=== PATIENT | female | born 1970 | race Caucasian/White ===

== ENCOUNTER 2016-12-17 13:40 | Emergency (ER) | payer BC ==
[~2016-12-17] VITALS: Ht 172.7 cm; Wt 67.0 kg
[~2016-12-17 13:40] MED LIST: ALBUAER19 INH; CRFL PO; CTP1CL PO; CYM/30 PO; DULO60CA44 PO; GABA-113 PO; HYDR50CA2 PO; OXYC-57 PO; POTA-335 PO; PRAZ2CAP3 PO; QUET-205 PO; QUET1TAB30 PO; ROPI0.5T15 PO; TOPI50TA16 PO; TRAZ50TA35 PO
[2016-12-17 13:45] VITALS: TEMP 37.2; Ht 172.7 cm; Wt 67.0 kg
[2016-12-17] MEDS ORDERED: LORAZEPAM 1 MG TAB SL STA (14:35)
--- NOTE | 2016-12-17 14:48 | EMERGENCY ROOM VISIT NOTE ---
History Report prepared by Silvia: Latrice Chahal Under the Supervision of: Dr. Dileep Whitlock M.D. First contact with patient: 14:14 Chief Complaint: MENTAL HEALTH EVALUATION Stated Complaint: VOICES IN HER HEAD TELLING HER NOT TO DO THINGS History of Present Illness The patient is a 46 year old female who presents to the Emergency Room with complaints of persistent auditory hallucinations that began in July. The patient states that she just got out of retirement today after being there since July 28. She states that when she went to retirement is when her hallucinations began. The patient states that she was always locked in a room while in retirement and was only let out to go see her psych doctors. The patient states that the voices are not telling her to do anything, and she denies any suicidal or homicidal ideation. She states that she has been sleeping okay. The patient notes a decrease in appetite. She states that she is on Klonopin. The patient notes back pain today that is chronic. She rates her discomfort as a 6/10 in severity. The patient states that she has had a decrease in her Seroquel, noting that the psychiatrists at the retirement felt she was on too many medications. The patient states that she is currently feeling anxious. Source of History: patient Onset: July Position: other (global) Quality: other (auditory hallucinations) Timing: other (persistent) Associated Symptoms: + back pain Note: Associated Symptoms: anxious Review of Systems All systems have been listed, reviewed, and are negative other than those previously mentioned. Please see Additional Medical History Sheet. Past Medical & Surgical Medical Problems: (1) Bipolar disorder (2) Cannabis abuse (3) Depression (4) Hepatitis C (5) Personality disorder (6) PTSD Surgical Problems: (1) History of appendectomy (2) Hx of cholecystectomy Family History Diabetes mellitus FHx: gallbladder disease Heart disease Hypertension Social History Smoking Status: Current Every Day Smoker Alcohol Use: occasionally Drug Use: heroin Marital Status: Housing Status: lives with family Occupation Status: disabled Current/Historical Medications Scheduled Clonazepam (Clonazepam), 1 MG PO BID Clonazepam (Klonopin), 0.5 MG PO BID Clonidine Hcl (Catapres), 0.1 MG PO BID Fluoxetine (Prozac), 80 MG PO DAILY Melatonin (Kp Melatonin), 3 MG PO HS Nortriptyline Hcl (Pamelor), 150 MG PO HS Quetiapine Fumarate (Seroquel), 50 MG PO QAM Quetiapine Fumarate (Seroquel), 200 MG PO HS Quetiapine Fumarate (Seroquel), 50 MG PO DAILY@1600 Topiramate (Topamax), 50 MG PO BID [Apple Sauce], 1 DOSE PO TID Scheduled PRN Nutritional Supplements ([place] Instant Breakfa), 1 DOSE PO TID PRN for PRN [Efferdent], 4 TAB PO HS PRN for PRN Allergies Coded Allergies: Pantoprazole (Unverified Allergy, Intermediate, seizures, 12/17/16) Adhesives (Verified Allergy, Unknown, BREAK OUT, 12/17/16) BEE STING (Unverified Allergy, Unknown, unknown, 12/17/16) Latex1 -Allergic Contact Dermititis (Verified Allergy, Unknown, ALLERGY TO POWDER IN GLOVES, 12/17/16) Physical Exam Vital Signs Date Time Temp Pulse Resp B/P Pulse Ox O2 Delivery O2 Flow Rate FiO2 12/17/16 13:45 37.2 102 16 124/82 99 Room Air Physical Exam GENERAL: Patient appears very anxious, very quiet voice. Patient appears somewhat emaciated. SKIN: No erythema, pallor, cyanosis or rash HEENT: Normal head, pupils equal, reactive to light and accommodation. Ears normal. Oral cavity and posterior pharynx appear normal. Neck: Without adenopathy, no neck vein distention. LUNGS: Clear to auscultation. No wheezes, no rales, no rhonchi. HEART: No murmurs. No gallops. No rubs ABDOMEN: Soft nontender. EXTREMITIES: No signs of trauma or infection. NEUROLOGIC: Cranial nerves II-XII within normal limits. No gross motor sensory function deficits. PSYCH: Patient appears very anxious, patient is ringing her hands, not suicidal , hears voices, but not commanding her to do anything. Medical Decision & Procedures Laboratory Results 12/17/16 15:50 12/17/16 15:50 Test 12/17/16 14:02 12/17/16 15:50 Urine Color YELLOW Urine Appearance CLEAR (CLEAR) Urine pH 6.5 (4.5-7.5) Urine Specific [place] 1.013 (1.000-1.030) Urine Protein NEG (NEG) Urine Glucose (UA) NEG (NEG) Urine Ketones NEG (NEG) Urine Occult Blood NEG (NEG) Urine Nitrite NEG (NEG) Urine Bilirubin NEG (NEG) Urine Urobilinogen NEG (NEG) Urine Leukocyte Esterase NEG (NEG) Urine Test NEG (NEG) Urine Opiates Screen NEG (NEG) Urine Methadone, Qualitative NEG (NEG) Urine Barbiturates NEG (NEG) Urine Phencyclidine (PCP) Level NEG (NEG) Ur Amphetamine/Methamphetamine NEG (NEG) MDMA (Ecstasy) Screen NEG (NEG) Urine Benzodiazepines Screen NEG (NEG) Urine Cocaine Metabolite NEG (NEG) Urine Marijuana (THC) NEG (NEG) Red Blood Count 4.23 M/uL (4.2-5.4) Mean Corpuscular Volume 96.9 fL (80-100) Mean Corpuscular Hemoglobin 34.0 pg (25-34) Mean Corpuscular Hemoglobin Concent 35.1 g/dl (32-36) RDW Standard Deviation 44.7 fL (36.4-46.3) RDW Coefficient of Variation 12.7 % (11.5-14.5) Mean Platelet Volume 9.1 fL (7.4-10.4) Anion Gap 8.0 mmol/L (3-11) Est Creatinine Clear Calc Drug Dose 73.1 ml/min Estimated GFR () 81.2 Estimated GFR (Non- 70.0 BUN/Creatinine Ratio 20.0 (10-20) Calcium Level 9.5 mg/dl (8.5-10.1) Total Bilirubin 0.4 mg/dl (0.2-1) Aspartate Amino Transf (AST/SGOT) 22 U/L (15-37) Alanine Aminotransferase (ALT/SGPT) 40 U/L (12-78) Alkaline Phosphatase 112 U/L (45-117) Troponin I < 0.015 ng/ml (0-0.045) Total Protein 8.3 gm/dl (6.4-8.2) Albumin 4.2 gm/dl (3.4-5.0) Globulin 4.1 gm/dl (2.5-4.0) Albumin/Globulin Ratio 1.0 (0.9-2) Thyroid Stimulating Hormone (TSH) 2.430 uIu/ml (0.300-4.500) Ethyl Alcohol mg/dL < 3.0 mg/dl (0-3) Laboratory results as stated above per my review. ECG Indication: other (anxiety) Rate (beats per minute): 89 Rhythm: normal sinus Findings: LPFB, RBBB, no acute ischemic change ED Course 1415: Past medical records reviewed. The patient was evaluated in room A7. A complete history and physical examination was performed. 1442: Per the nursing staff, the patient's family states that the patient took 1 mg of Klonopin 1 hour prior to arrival. Therefore, I cancelled the Ativan. 1644: Per the psych embedded case manager, the patient has all her outpatient follow-up set up. 1717: I reevaluated the patient and she is resting comfortably. I discussed the exam findings with her and I discussed the treatment plan. She verbalized complete understanding and agreement. She is ready to go home. Medical Decision Nurses notes reviewed. Medical history sheet reviewed. Differential diagnosis includes but is not limited to: acute psychosis, anxiety, malnutrition, thought disorder. Initially the patient was very anxious. She had taken an extra Klonopin 1 hour prior to arrival and during her stay she did seem to calm down considerably. Multiple labs and EKG were evaluated. Please see above. The patient does not appear to have infection or have a significant metabolic disorder. TSH was also measured. The patient has follow-up appointments with psychiatry within the next few days. I believe the patient can safely return home. She is not suicidal or homicidal. Impression Primary Impression: Depression Additional Impression: Anxiety Scribe Attestation The scribe's documentation has been prepared under my direction and personally reviewed by me in its entirety. I confirm that the note above accurately reflects all work, treatment, procedures, and medical decision making performed by me. Departure Information Dispostion Home / Self-Care Referrals Jewel Platt III, M.D. (PCP) Forms HOME CARE DOCUMENTATION FORM, IMPORTANT VISIT INFORMATION Patient Instructions My [facility] Additional Instructions Continue all of your current medications as prescribed. Follow-up with psychiatry on Tuesday as scheduled. Return here sooner if you're having more problems. Problem Qualifiers
[2016-12-17] MEDS ORDERED: CLON0.5T3 PO (15:57)
[2016-12-17] MEDS ORDERED: SRQ200 PO (15:57)
[2016-12-17] MEDS ORDERED: NORT75CA2 PO (15:57)
[2016-12-17] MEDS ORDERED: [UNRECOGNIZED DRUG - OTHER] PO (15:57)
[2016-12-17] MEDS ORDERED: NUTRLIQ21 PO (15:57)
[2016-12-17] MEDS ORDERED: MELA1TAB5 PO (15:57)
[2016-12-17] MEDS ORDERED: [UNRECOGNIZED DRUG - OTHER] PO (15:57)
[2016-12-17] MEDS ORDERED: QUET1TAB32 PO (15:57)
[2016-12-17] MEDS ORDERED: KLN1X PO (15:57)
[2016-12-17] MEDS ORDERED: TPM/50 PO (15:57)
[2016-12-17] MEDS ORDERED: QUET5TAB PO (15:57)
[2016-12-17] MEDS ORDERED: FLUO40CA8 PO (15:57)
[2016-12-17 16:04] LABS: MEAN CELL VOLUME 96.9 fL (80-100); MEAN CORPUSCULAR HGB CONC 35.1 g/dl (32-36); MEAN PLATELET VOLUME 9.1 fL (7.4-10.4); PLATELET COUNT 234 K/uL (130-400); RED BLOOD COUNT 4.23 M/uL (4.2-5.4); WHITE BLOOD COUNT 6.79 K/uL (4.8-10.8)
[2016-12-17 16:29] LABS: ALT/SGPT 40 U/L (12-78); AST/SGOT 22 U/L (15-37); BLOOD UREA NITROGEN 19 mg/dl (7-18); CALCIUM 9.5 mg/dl (8.5-10.1); CARBON DIOXIDE 28 mmol/L (21-32); CHLORIDE 106 mmol/L (98-107); CREATININE 0.97 mg/dl (0.60-1.20); GLUCOSE 87 mg/dl (70-99); SODIUM 142 mmol/L (136-145)
[2016-12-17 16:39] LABS: ALKALINE PHOSPHATASE 112 U/L (45-117)
[2016-12-17 16:42] LABS: PREG INTERNAL NEGATIVE QC NEG CLEAR BACKGROUND; PREG INTERNAL POSITIVE QC POS CONTROL LINE; URINE APPEARANCE CLEAR (CLEAR); URINE BILIRUBIN NEG (NEG); URINE COLOR YELLOW; URINE NITRITE NEG (NEG); URINE PH 6.5 (4.5-7.5); URINE SPECIFIC GRAVITY 1.013 (1.000-1.030); UROBILINOGEN NEG (NEG); ZZUR CULT IF INDIC CLEAN CATCH NO
[2016-12-17 16:43] LABS: MANUAL MICROSCOPIC REQUIRED? NO; REVIEW REQ? NO
[2016-12-17 17:11] LABS: BENZODIAZEPINE, URINE NEG (NEG); COCAINE,URINE NEG (NEG); PHENCYCLIDINE, URINE NEG (NEG)
[2016-12-17 17:36] VITALS: BP 104/73; PULSE 91; O2SAT 98
== END 2016-12-17 17:36 | disposition home or self-care (01) ==
LOC: C.EDB 13:44 → C.EDA 17:36
DX: F32.9 Major depressive disorder, single episode, unspecified (principal); F41.9 Anxiety disorder, unspecified; F43.10 Post-traumatic stress disorder, unspecified; F12.10 Cannabis abuse, uncomplicated; B19.20 Unspecified viral hepatitis C without hepatic coma; F60.9 Personality disorder, unspecified; F17.200 Nicotine dependence, unspecified, uncomplicated

== ENCOUNTER 2017-04-25 15:58 | Emergency (ER) | payer BC ==
[~2017-04-25] VITALS: Ht 172.7 cm; Wt 54.4 kg
[~2017-04-25 15:58] MED LIST changes: -ALBUAER19 INH; +CLON0.5T3 PO; -CRFL PO; -CYM/30 PO; -DULO60CA44 PO; +FLUO40CA8 PO; -GABA-113 PO; -HYDR50CA2 PO; +KLN1X PO; +MELA1TAB5 PO; +NORT75CA2 PO; +NUTRLIQ21 PO; -OXYC-57 PO; -POTA-335 PO; -PRAZ2CAP3 PO; -QUET-205 PO; -QUET1TAB30 PO; +QUET1TAB32 PO; +QUET5TAB PO; -ROPI0.5T15 PO; +SRQ200 PO; -TOPI50TA16 PO; +TPM/50 PO; -TRAZ50TA35 PO; +[UNRECOGNIZED DRUG - OTHER] PO; +[UNRECOGNIZED DRUG - OTHER] PO
[2017-04-25 16:04] VITALS: TEMP 36.9; Ht 172.7 cm; Wt 54.4 kg
[2017-04-25] MEDS ORDERED: CYM/60 PO (16:30)
[2017-04-25] MEDS ORDERED: CYM/30 PO (16:30)
[2017-04-25] MEDS ORDERED: PRAZ2CAP3 PO (16:40)
[2017-04-25] MEDS ORDERED: CHLO100T8 PO (16:40)
[2017-04-25] MEDS ORDERED: BUSP15TA70 PO (16:40)
[2017-04-25] MEDS ORDERED: CGN1X PO (16:40)
[2017-04-25] MEDS ORDERED: ROPI0.25 PO (16:40)
[2017-04-25] MEDS ORDERED: QUET1TAB34 PO (16:40)
--- NOTE | 2017-04-25 16:44 | EMERGENCY ROOM VISIT NOTE ---
History Report prepared by Silvia: Latrice Chahal Under the Supervision of: Dr. Yony Diego M.D. First contact with patient: 16:01 Chief Complaint: MENTAL HEALTH EVALUATION Stated Complaint: MHID History of Present Illness The patient is a 46 year old female who presents to the Emergency Room with complaints of increasing depression that began several weeks ago. The patient states that she was recently taken from assisted to [place] for drug rehabilitation. She states that she was discharged and has been following with a psychiatrist and has had recent medication changes. The patient states that today she was at a drug and alcohol class at [facility] when she made statements of frustration. She states that since she has gotten out of assisted, she has been attempting to get her drivers license back. The patient states that she feels she has been relying too heavily on other people to assist her. She states that while at class today everything she said was taken the wrong way. The patient states that she does have a previous history of self- mutilation two years ago, but states that she promised her son that she would never harm herself again. She states that she told the people at her class that she would never harm herself, but they made her come to the emergency department anyway. The patient additionally reports increased family stressors. She reports increased sleep. Source of History: patient Onset: several weeks ago Position: other (global) Quality: other (depression) Timing: other (increasing) Modifying Factors (Worsening): other (family stressors) Note: Associated Symptoms: increased sleep Review of Systems See HPI for pertinent positives & negatives. A total of 10 systems reviewed and were otherwise negative. Past Medical & Surgical Medical Problems: (1) Bipolar disorder (2) Cannabis abuse (3) Depression (4) Hepatitis C (5) Personality disorder (6) PTSD Surgical Problems: (1) History of appendectomy (2) Hx of cholecystectomy Family History Diabetes mellitus FHx: gallbladder disease Heart disease Hypertension Social History Smoking Status: Current Every Day Smoker Alcohol Use: occasionally Drug Use: heroin Marital Status: Housing Status: lives with family Occupation Status: disabled Current/Historical Medications Scheduled Benztropine Mesylate (Benztropine Mesylate), 1 MG PO BID Buspirone Hcl (Buspar), 15 MG PO TID Chlorpromazine Hcl (Thorazine), 100 MG PO DAILY Duloxetine HCl (Cymbalta), 30 MG PO QAM Duloxetine HCl (Cymbalta), 60 MG PO QAM Melatonin (Kp Melatonin), 3 MG PO HS Nortriptyline Hcl (Pamelor), 150 MG PO HS Prazosin Hcl (Prazosin), 8 MG PO HS Quetiapine Fumarate (Seroquel), 200 MG PO HS Quetiapine Fumarate (Seroquel), 100 MG PO BID Ropinirole (Requip), 0.25 MG PO HS Topiramate (Topamax), 100 MG PO BID Allergies Coded Allergies: Pantoprazole (Unverified Allergy, Intermediate, seizures, 04/25/17) Adhesives (Verified Allergy, Unknown, BREAK OUT, 04/25/17) BEE STING (Unverified Allergy, Unknown, unknown, 04/25/17) Codeine (Unverified Allergy, Unknown, VOMITING, 04/25/17) Latex1 -Allergic Contact Dermititis (Verified Allergy, Unknown, ALLERGY TO POWDER IN GLOVES, 04/25/17) Physical Exam Vital Signs Date Time Temp Pulse Resp B/P (MAP) Pulse Ox O2 Delivery O2 Flow Rate FiO2 04/25/17 17:30 110 22 134/93 97 Room Air 04/25/17 16:04 36.9 99 16 121/83 97 Room Air Physical Exam GENERAL: Patient is crying on exam. HEAD: Normocephalic atraumatic EYES: Ocular movements intact pupils equal and react to light OROPHARYNX mucous membranes are moist no exudates present no erythema or edema present NECK: Supple no nuchal rigidity CHEST: Good equal expansion LUNGS: Clear and equal to auscultation CARDIAC: Normal S1 and S2 ABDOMEN: Soft nontender no guarding BACK: No CVA tenderness EXTREMITIES: No pain upon palpation normal muscle strength in all groups no clubbing cyanosis or edema NEURO: Patient is following commands and answering questions appropriately. Alert and oriented x3 Cranial Nerves 2-12 grossly intact PSYCH: Denies being suicidal or homicidal ideation. Medical Decision & Procedures Laboratory Results 04/25/17 16:30 Red Blood Count 5.13, Mean Corpuscular Volume 91.4, Mean Corpuscular Hemoglobin 31.0, Mean Corpuscular Hemoglobin Concent 33.9, Mean Platelet Volume 9.1, Neutrophils (%) (Auto) 64.0, Lymphocytes (%) (Auto) 28.2, Monocytes (%) (Auto) 5.5, Eosinophils (%) (Auto) 1.9, Basophils (%) (Auto) 0.2, Neutrophils # (Auto) 6.50, Lymphocytes # (Auto) 2.86, Monocytes # (Auto) 0.56, Eosinophils # (Auto) 0.19, Basophils # (Auto) 0.02 04/25/17 16:30 Test 04/25/17 00:00 04/25/17 16:30 Urine Color YELLOW Urine Appearance CLOUDY (CLEAR) Urine pH 5.5 (4.5-7.5) Urine Specific [place] 1.019 (1.000-1.030) Urine Protein NEG (NEG) Urine Glucose (UA) NEG (NEG) Urine Ketones NEG (NEG) Urine Occult Blood NEG (NEG) Urine Nitrite NEG (NEG) Urine Bilirubin NEG (NEG) Urine Urobilinogen NEG (NEG) Urine Leukocyte Esterase TRACE (NEG) Urine WBC (Auto) 5-10 /hpf (0-5) Urine RBC (Auto) 0-4 /hpf (0-4) Urine Hyaline Casts (Auto) 1-5 /lpf (0-5) Urine Epithelial Cells (Auto) >30 /lpf (0-5) Urine Bacteria (Auto) 1+ (NEG) Urine Crystals CALCIUM OXALATE (NONE Urine Opiates Screen NEG (NEG) Urine Methadone, Qualitative NEG (NEG) Urine Barbiturates NEG (NEG) Urine Phencyclidine (PCP) Level NEG (NEG) Ur Amphetamine/Methamphetamine NEG (NEG) MDMA (Ecstasy) Screen NEG (NEG) Urine Benzodiazepines Screen NEG (NEG) Urine Cocaine Metabolite NEG (NEG) Urine Marijuana (THC) NEG (NEG) White Blood Count 10.15 K/uL (4.8-10.8) Red Blood Count 5.13 M/uL (4.2-5.4) Hemoglobin 15.9 g/dL (12.0-16.0) Hematocrit 46.9 % (37-47) Mean Corpuscular Volume 91.4 fL (80-100) Mean Corpuscular Hemoglobin 31.0 pg (25-34) Mean Corpuscular Hemoglobin Concent 33.9 g/dl (32-36) Platelet Count 285 K/uL (130-400) Mean Platelet Volume 9.1 fL (7.4-10.4) Neutrophils (%) (Auto) 64.0 % Lymphocytes (%) (Auto) 28.2 % Monocytes (%) (Auto) 5.5 % Eosinophils (%) (Auto) 1.9 % Basophils (%) (Auto) 0.2 % Neutrophils # (Auto) 6.50 K/uL (1.4-6.5) Lymphocytes # (Auto) 2.86 K/uL (1.2-3.4) Monocytes # (Auto) 0.56 K/uL (0.11-0.59) Eosinophils # (Auto) 0.19 K/uL (0-0.5) Basophils # (Auto) 0.02 K/uL (0-0.2) RDW Standard Deviation 45.4 fL (36.4-46.3) RDW Coefficient of Variation 13.6 % (11.5-14.5) Immature Granulocyte % (Auto) 0.2 % Immature Granulocyte # (Auto) 0.02 K/uL (0.00-0.02) Anion Gap 7.0 mmol/L (3-11) Est Creatinine Clear Calc Drug Dose 64.2 ml/min Estimated GFR () 84.3 Estimated GFR (Non- 72.8 BUN/Creatinine Ratio 10.5 (10-20) Calcium Level 9.2 mg/dl (8.5-10.1) Total Bilirubin 0.2 mg/dl (0.2-1) Direct Bilirubin < 0.1 mg/dl (0-0.2) Aspartate Amino Transf (AST/SGOT) 13 U/L (15-37) Alanine Aminotransferase (ALT/SGPT) 25 U/L (12-78) Alkaline Phosphatase 102 U/L (45-117) Total Protein 8.5 gm/dl (6.4-8.2) Albumin 4.1 gm/dl (3.4-5.0) Thyroid Stimulating Hormone (TSH) 2.260 uIu/ml (0.300-4.500) Ethyl Alcohol mg/dL < 3.0 mg/dl (0-3) Labs reviewed by ED physician. ED Course 1614: Past medical records reviewed. The patient was evaluated in room A6. A complete history and physical examination was performed. 1751: The patient is medically clear for further psychiatric evaluation. 1830: Per the psych case checker, the patient is going to be discharged with her son who is willing to take care of her. She is in agreement with the treatment plan. Medical Decision Differential diagnosis: Etiologies such as mood disorder, infection, hypoglycemia, electrolyte abnormalities, cardiac sources, intracerebral event, toxicologic, neurologic, as well as others were entertained. Medication Reconciliation: I attest that I have personally reviewed the patient' s current medication list Blood Pressure Screening: Patient was found to have normal blood pressure on screening and does not require follow up. This is a 46-year-old female who presents emergency department who arrives under a 302 warrant. 302 warrant is vague and the patient notes that she has too much to live for including her 26-year-old son. She is embarrassed over an incident that happened several years ago when she can take care of her son and states that she will never put her son through this again. She denies being suicidal or homicidal. She does admit to being stressed out over the use of her car. The patient was medically cleared by me has a normal CBC renal profile liver profile. She was independently evaluated by case management who felt that the patient was safe enough to be discharged home with close outpatient follow-up. Case management also talked to the patient's son who agreed to take care of her and noted he would not be letting herself hurt herself. Impression Primary Impression: Mood disorder Scribe Attestation The scribe's documentation has been prepared under my direction and personally reviewed by me in its entirety. I confirm that the note above accurately reflects all work, treatment, procedures, and medical decision making performed by me. Departure Information Dispostion Home / Self-Care Referrals Jewel Platt III, M.D. (PCP) Forms HOME CARE DOCUMENTATION FORM, IMPORTANT VISIT INFORMATION Patient Instructions My [facility] Additional Instructions Return if symptoms worsen Follow up with [facility] You have been examined and treated today on an emergency basis only. This is not a substitute for, or an effort to provide, complete comprehensive medical care. It is impossible to recognize and treat all injuries or illnesses in a single emergency department visit. It is therefore important that you follow up closely with Dr Platt. Call as soon as possible for an appointment. Thank you for your time and consideration. I look forward to speaking with you again soon. Please don't hesitate to call us if you have any questions.
[2017-04-25 16:51] LABS: BASO % 0.2 %; BASO ABS # 0.02 K/uL (0-0.2); COMPLETE YES; EOS % 1.9 %; HEMATOCRIT 46.9 % (37-47); IG% 0.2 %; LYMPH % 28.2 %; LYMPH ABS # 2.86 K/uL (1.2-3.4); MEAN CELL VOLUME 91.4 fL (80-100); MEAN CORPUSCULAR HGB CONC 33.9 g/dl (32-36); MEAN PLATELET VOLUME 9.1 fL (7.4-10.4); MONO % 5.5 %; PLATELET COUNT 285 K/uL (130-400); RED BLOOD COUNT 5.13 M/uL (4.2-5.4); WHITE BLOOD COUNT 10.15 K/uL (4.8-10.8)
[2017-04-25 17:13] LABS: ALT/SGPT 25 U/L (12-78); AST/SGOT 13 U/L (15-37); BLOOD UREA NITROGEN 10 mg/dl (7-18); BUN/CREATININE RATIO 10.5 (10-20); CALCIUM 9.2 mg/dl (8.5-10.1); CARBON DIOXIDE 24 mmol/L (21-32); CHLORIDE 109 mmol/L (98-107); CREATININE 0.94 mg/dl (0.60-1.20); GLUCOSE 103 mg/dl (70-99); POTASSIUM 3.3 mmol/L (3.5-5.1); SODIUM 140 mmol/L (136-145)
[2017-04-25 17:16] LABS: URINE APPEARANCE CLOUDY (CLEAR); URINE BILIRUBIN NEG (NEG); URINE COLOR YELLOW; URINE EPITHELIAL CELL AUTO >30 /lpf (0-5); URINE NITRITE NEG (NEG); URINE PH 5.5 (4.5-7.5); URINE SPECIFIC GRAVITY 1.019 (1.000-1.030); UROBILINOGEN NEG (NEG)
[2017-04-25 17:23] LABS: ALKALINE PHOSPHATASE 102 U/L (45-117)
[2017-04-25 17:29] LABS: MANUAL MICROSCOPIC REQUIRED? NO; REVIEW REQ? YES
[2017-04-25 17:30] VITALS: BP 134/93; PULSE 110; O2SAT 97
[2017-04-25 17:36] LABS: BENZODIAZEPINE, URINE NEG (NEG); COCAINE,URINE NEG (NEG); PHENCYCLIDINE, URINE NEG (NEG)
== END 2017-04-25 18:45 | disposition home or self-care (01) ==
LOC: EDBD 15:58 → C.EDA 15:59
DX: Z00.8 Encounter for other general examination (principal); F39 Unspecified mood [affective] disorder; Z79.899 Other long term (current) drug therapy; F17.210 Nicotine dependence, cigarettes, uncomplicated

== ENCOUNTER 2022-08-17 07:21 | Observation (INO) ==
[2022-08-17] MEDS ORDERED: MoRPHine SULFATE 4 MG/ML 1 ML CARP\\VIAL IV STA (07:41)
[2022-08-17] MEDS ORDERED: ONDANSETRON INJ 2 MG/ML 2 ML VIAL IV STA (07:41)
[2022-08-17] MEDS ORDERED: SODIUM CHLORIDE 0.9% 1000ML 1,000 ML IV STA (07:41)
[2022-08-17] MEDS ORDERED: KETOROLAC TROMETHAMINE 15 MG/ML VIAL IV STA (07:41)
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
[2022-08-17 08:03] LABS: Hematocrit (blood only) 42.2 % (34.1-44.9); Hemoglobin 14.8 g/dl (12.0-16.0); Mean Corpuscular Hemoglobin 32.6 pg (25.0-34.0); Mean Corpuscular Hgb Conc 35.1 g/dL (32.0-36.0); Mean Platelet Volume 9.3 fL (9.4-12.3); Platelet Count 291 K/uL (130-400); RDW Coefficient of Variation 13.1 % (11.5-14.5); RDW Standard Deviation 45.2 fL (36.4-46.3); Red Blood Count 4.54 M/uL (3.93-5.22); White Blood Count 24.06 K/ul (4.8-10.8)
[2022-08-17 08:07] LABS: Appearance Urine Cloudy (Clear); Bacteria Urine Automated Negative (Negative); Bilirubin Urine 1+ (Negative); Blood Urine 1+ (Negative); Color Urine Dark Yellow; Epithelial Cell Urine Auto >30 /lpf (0-5); Glucose Urine UA Negative (Negative); Ketones Urine 3+ (Negative); Leukocyte Esterase Urine Trace (Negative); Nitrite Urine Negative (Negative); Protein Urine 1+ (Negative); Specific Gravity Urine 1.018 (1.000-1.030); Urobilinogen Urine Negative (Negative); pH Urine 5.5 (4.5-7.5)
[2022-08-17 08:23] LABS: Anion Gap 13 (3-11); BUN Creatinine Ratio 13.8 (10-20); Blood Urea Nitrogen 11 mg/dl (6-23); Calcium 10.5 mg/dl (8.5-10.1); Carbon Dioxide 21 mmol/L (21-32); Chloride 105 mmol/L (98-107); Creatinine Clr Calc Pharmacy 90.2 ml/min; Est GFR (African American) 98.2 ml/min; Est GFR (Non-African American) 84.8 ml/min; Glucose 122 mg/dl (70-99(Fasting)); Potassium 2.9 mmol/L (3.5-5.1); Sodium 139 mmol/L (136-145)
[2022-08-17 08:24] LABS: Alanine Aminotransferase 20 U/L (7-52); Albumin Globulin Ratio 1.4 (0.9-2); Albumin Level 4.4 gm/dl (3.4-5.0); Alkaline Phosphatase 86 U/L (34-104); Aspartate Aminotransferase 32 U/L (13-39); Bilirubin,Total 1.4 mg/dl (0.2-1.0); Globulin 3.2 gm/dl (2.5-4.0); Lipase < 3 U/L (11-82); Total Protein 7.6 gm/dl (6.0-8.3)
[2022-08-17] MEDS ORDERED: ACETAMINOPHEN 10MG/ML Custom 1,000 MG in EMPTY BAG 0 ML IV ONE (08:24)
[2022-08-17 08:27] LABS: Basophils # (auto) 0.08 K/uL (0-0.2); Basophils % (auto) 0.3 %; Eosinophils # (auto) 0.01 K/uL (0-0.50); Immature Granulocytes # (auto) 0.15 K/uL (0.00-0.02); Immature Granulocytes % (auto) 0.6 %; Lymphocytes # (auto) 1.65 K/uL (1.2-3.4); Lymphocytes % (auto) 6.9 %; Monocytes # (auto) 1.45 K/uL (0.24-0.82); Neutrophils # (auto) 20.72 K/uL (1.4-6.5); Neutrophils % (auto) 86.2 %
[2022-08-17 08:28] LABS: Troponin I High Sensitivity 15.1 pg/ml (0-14)
[2022-08-17] MEDS ORDERED: cefTRIAXone SODIUM 2,000 MG/70 ML BAG IV STA (08:33)
[2022-08-17] MEDS ORDERED: ACETAMINOPHEN 1000 MG/100 ML IV IV ONE (08:50)
[2022-08-17] MEDS: POTASSIUM CHLORIDE / WTR 10 MEQ/100 ML PLCT IV SCH ×2 (08:58→10:04)
--- NOTE | 2022-08-17 09:09 | CT Scan Report ---
CT OF THE ABDOMEN AND PELVIS WITHOUT CONTRAST CLINICAL HISTORY: Pyelonephritis w/ h/o kidney stones COMPARISON STUDY: Abdominal series February 12, 2015. Right upper quadrant ultrasound December 12, 2014. CT of the abdomen and pelvis May 06, 2014. Chest CT November 20, 2014. TECHNIQUE: Axial images of the abdomen and pelvis were obtained without IV contrast. Images were revi ewed in the axial, sagittal, and coronal planes. Automated exposure control was utilized for the gabrielle dy. A dose lowering technique was utilized adhering to the principles of ALARA. FINDINGS: A trace right pleural effusion with right pleural thickening is unchanged from prior exams. This favors a chronic pleural effusion. Subpleural right lower lobe opacity with volume loss is also unchanged. This favors round atelectasis. No pneumatosis, free air or portal venous gas is present. Intracanalicular electrodes are partially imaged on this exam. Postoperative findings within the spin e are present. Numerous bilateral renal calculi measure up to 4 mm. There is no hydronephrosis. No ur eteral calculi are present. There is no perinephric infiltration. No renal fluid collection is identi fied on this unenhanced examination. A right pelvic calcification represents a phlebolith. Evaluation of the remainder of the abdomen and pelvis is suboptimal on this unenhanced exam. Liver, spleen, adr enal glands and pancreas are unremarkable. Moderate plaque of the abdominal aorta is noted. Infrarena l abdominal aorta is ectatic, measuring 2.4 cm. There is no evidence for a bowel obstruction. The maylin endix is not visualized. Mild bilateral groin stranding is a nonspecific finding. This is symmetric. IMPRESSION: 1. Bilateral nephrolithiasis. No ureteral calculi or hydronephrosis. 2. No bowel obstruction. No bowel wall thickening on unenhanced exam. 3. Moderate plaque within the abdominal aorta which is ectatic, measuring approximately 2.4 cm in hillary iber. 4. Chronic small right pleural effusion with subpleural right lower lobe opacity consistent with roun d atelectasis. 5. Nonspecific mild symmetric bilateral groin stranding. ACT 112: Negative or not required by law. Electronically signed by: Ricardo Mcdaniels M.D. 08/17/2022 9:06 AM
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
[2022-08-17] MEDS ORDERED: POTASSIUM CHLORIDE CRTAB 20 MEQ TABCR PO STA (11:05)
--- NOTE | 2022-08-17 14:16 | Electrocardiogram Report ---
Test Reason : Blood Pressure : / mmHG Vent. Rate : 088 BPM Atrial Rate : 088 BPM P-R Int : 126 ms QRS Dur : 090 ms QT Int : 380 ms P-R-T Axes : 056 081 037 degrees QTc Int : 459 ms Normal sinus rhythm Normal ECG When compared with ECG of 17-DEC-2016 15:52, (RBBB and left posterior fascicular block) is no longer Present Confirmed by Job Finn ([id number]) on 08/17/2022 2:15:32 PM Referred By: REFERRED SELF Confirmed By:Job Finn
[2022-08-17] MEDS: busPIRone 15 MG TAB PO SCH ×2 (14:19→21:14)
[2022-08-17] MEDS: GABAPENTIN 300 MG CAP PO SCH ×2 (14:19→21:15)
[2022-08-17] MEDS: ONDANSETRON INJ 2 MG/ML 2 ML VIAL IV PRN ×2 (16:05→20:19)
[2022-08-17] MEDS ORDERED: Flu Vaccine (Fluarix) 0.5mL SYR (Standard Dose) IM ONE (16:30)
[2022-08-17] MEDS: POTASSIUM CHLORIDE CRTAB 20 MEQ TABCR PO SCH ×2 (16:45→21:13)
[2022-08-17 16:53] LABS: Adenovirus F 40/41 PCR Not Detected (NotDetected); Astrovirus PCR Not Detected (NotDetected); Campylobacter PCR Not Detected (NotDetected); Cryptosporidium PCR Not Detected (NotDetected); Cyclospora cayetanensis PCR Not Detected (NotDetected); Entamoeba histolytica PCR Not Detected (NotDetected); Enteroaggregative E.coli(EAEC) Not Detected (NotDetected); Enteropathogenic E.coli (EPEC) Not Detected (NotDetected); Enterotoxigenic E.coli (ETEC) Not Detected (NotDetected); Giardia lamblia PCR Not Detected (NotDetected); Norovirus GI/GII PCR Not Detected (NotDetected); Plesiomonas shigelloides PCR Not Detected (NotDetected); Rotavirus A PCR Not Detected (NotDetected); Salmonella PCR Not Detected (NotDetected); Sapovirus PCR Not Detected (NotDetected); Shiga-like Toxin E.coli (STEC) Not Detected (NotDetected); Shigella/Enteroinvasive E.coli Not Detected (NotDetected); Vibrio cholerae PCR Not Detected (NotDetected); Vibrio species PCR Not Detected (NotDetected); Yersinia enterocolitica PCR Not Detected (NotDetected)
[2022-08-17] MEDS: ACETAMINOPHEN 325 MG TAB PO PRN (19:18)
[2022-08-17] MEDS: rOPINIRole HCL 1 MG TABLET PO SCH (21:14)
[2022-08-17] MEDS: BENZTROPINE MESYLATE 1 MG TAB PO SCH (21:15)
[2022-08-17] MEDS: PRAZOSIN HCL 1 MG CAP PO SCH (21:16)
[2022-08-17] MEDS: TOPIRAMATE 100 MG TAB PO SCH (21:16)
[2022-08-17] MEDS: ziprasidone HCL 80 MG CAP PO SCH (21:17)
[2022-08-17] MEDS ORDERED: KETOROLAC TROMETHAMINE 15 MG/ML VIAL IV ONE (21:49)
[2022-08-18] MEDS: LOPERAMIDE HCL 2 MG CAP PO PRN ×2 (00:54→01:36)
[2022-08-18] MEDS: traMADol HCL 50 MG TABLET PO PRN ×2 (03:36→20:19)
[2022-08-18 07:31] LABS: Hematocrit (blood only) 33.9 % (34.1-44.9); Hemoglobin 11.7 g/dl (12.0-16.0); Mean Corpuscular Hemoglobin 32.3 pg (25.0-34.0); Mean Corpuscular Hgb Conc 34.5 g/dL (32.0-36.0); Mean Corpuscular Volume 93.6 fL (80.0-100.0); Mean Platelet Volume 9.4 fL (9.4-12.3); Platelet Count 183 K/uL (130-400); RDW Coefficient of Variation 13.4 % (11.5-14.5); RDW Standard Deviation 46.3 fL (36.4-46.3); Red Blood Count 3.62 M/uL (3.93-5.22); White Blood Count 9.15 K/ul (4.8-10.8)
[2022-08-18 08:03] LABS: BUN Creatinine Ratio 14.5 (10-20); Calcium 8.7 mg/dl (8.5-10.1); Creatinine Clr Calc Pharmacy 105.5 ml/min; Est GFR (Non-African American) 100.1 ml/min; Potassium 2.7 mmol/L (3.5-5.1)
[2022-08-18] MEDS: TOPIRAMATE 100 MG TAB PO SCH ×2 (08:10→20:53)
[2022-08-18] MEDS: cefTRIAXone SODIUM 1,000 MG in DEXTROSE 5% 50 ML IV SCH (08:10)
[2022-08-18] MEDS: BENZTROPINE MESYLATE 1 MG TAB PO SCH ×2 (08:10→20:52)
[2022-08-18] MEDS: busPIRone 15 MG TAB PO SCH ×3 (08:11→20:52)
[2022-08-18] MEDS: GABAPENTIN 300 MG CAP PO SCH ×3 (08:11→20:51)
[2022-08-18] MEDS: DULoxetine HCL 30 MG CAP PO SCH (08:11)
[2022-08-18] MEDS ORDERED: cefTRIAXone SODIUM 1,000 MG in DEXTROSE 5% 50 ML IV SCH (09:00)
[2022-08-18] MEDS ORDERED: LOPERAMIDE HCL 2 MG CAP PO PRN (09:02)
[2022-08-18] MEDS: D5W AND LACTATED RINGERS 1,000 ML IV SCH ×2 (09:33→22:21)
[2022-08-18] MEDS: POTASSIUM CHLORIDE / WTR 10 MEQ/100 ML PLCT IV SCH ×6 (09:46→15:10)
--- NOTE | 2022-08-18 09:52 | Hospitalist Progress Note ---
Date of Service August 18, 2022 Assessment & Plan (1) Pyelonephritis: (2) Abdominal pain: (3) Nausea and vomiting: (4) Hypokalemia: Plan: -Patient was recently seen at [facility] on 08/14 and 08/15 for similar complaints and was diagnosed with acute cystitis she was treated with a dose of macrobid in the ER, and given Macrobid 100 mg BID x 7d course. She returned to the ER on 08/15 and was diagnosed with acute pyelonephritis. -CT abdomen and pelvis on admission shows bilateral nephrolithiasis; moderate plaque within abdominal aorta which is ectatic measuring 2.4cm. WBC down trended from 24-9.15 Hemoglobin down trended from 14.8-11.7 Potassium is 2.7 Stool PCR negative Blood culture no growth Plan: -Continue to provide supportive care with D5 LR, Imodium and replenish Potassium. Pepcid added for reflux. 1 dose of GI cocktail given. -Advance diet as tolerated -No signs of active bleeding; hemoglobin has down trended; will obtain fecal occult hemoglobin. -Continue on ceftriaxone for now; we will follow-up on urine culture. (5) Bipolar disorder: Plan: - Continue buspar, cymbalta, gabapentin, prazosin (6) Hepatitis C: Plan: DVT ppx: - teds, scds, ambulatory CODE: Full code Dispo: From home, likely to remain in the hospital x 1-2 days (7) Cannabis abuse: Admission and Anticipated Discharge Date Admission Date: August 17, 2022 Subjective Patient seen and examined at bedside. She had multiple episode of watery diarrhea last night; no blood or mucus. She continues to feel nauseous and has epigastric pain. Review of Systems Review of Systems: All systems reviewed & are unremarkable except as noted in Subjective Physical Exam Physical Exam: Constitutional: WD/WN, vitals as above, NAD, sitting up in bed, pleasant, conversing easily Respiratory: normal respiratory effort, lungs clear to auscultation, no wheeze, rales, rhonchi. Normal insp/exp effort, no accessory muscle use Cardiovascular: RRR, no murmur, no edema Vessels: no JVD or carotid bruit Chest: normal inspection of chest Abdomen: Mild tenderness present in epigastric region Musculoskeletal: no cyanosis or clubbing, extremities motor strength 5/5 Skin: no rashes, warm and dry normal turgor Neurologic: PERRL, EOMI, accommodation nl, no face palsy, no dysarthria CN's II- XI intact bilaterally and moves all extremities Psychiatric: A+Ox3, euthymic affect Lymphatic: no cervical or axillary lymphadenopathy : deferred Results & Data Results & Data ([facility]) Vital Signs (Past 12 Hours) Vital Signs Temp Pulse Pulse Resp BP Pulse Ox O2 Del Method 08/18/22 07:15 36.5 C 65 18 106/69 92 Room Air 08/18/22 06:09 66 08/18/22 03:55 36.8 C 61 18 124/73 98 Room Air 08/17/22 22:23 101 H 08/17/22 23:32 36.9 C 102 H 18 116/68 93 Room Air Laboratory Results Laboratory Results WBC 9.15 K/ul (4.8-10.8) D 08/18/22 06:37 RBC 3.62 M/uL (3.93-5.22) L 08/18/22 06:37 Hgb 11.7 g/dl (12.0-16.0) L D 08/18/22 06:37 Hct 33.9 % (34.1-44.9) L 08/18/22 06:37 MCV 93.6 fL (80.0-100.0) 08/18/22 06:37 MCH 32.3 pg (25.0-34.0) 08/18/22 06:37 MCHC 34.5 g/dL (32.0-36.0) 08/18/22 06:37 RDW Std Deviation 46.3 fL (36.4-46.3) 08/18/22 06:37 RDW Coeff of Trey 13.4 % (11.5-14.5) 08/18/22 06:37 Plt Count 183 K/uL (130-400) 08/18/22 06:37 MPV 9.4 fL (9.4-12.3) 08/18/22 06:37 Immature Gran % (Auto) 0.6 % 08/17/22 07:40 Neut % (Auto) 86.2 % 08/17/22 07:40 Lymph % (Auto) 6.9 % 08/17/22 07:40 Yell % (Auto) 6.0 % 08/17/22 07:40 Eos % (Auto) 0.0 % 08/17/22 07:40 Baso % (Auto) 0.3 % 08/17/22 07:40 Neut # (Auto) 20.72 K/uL (1.4-6.5) H 08/17/22 07:40 Lymph # (Auto) 1.65 K/uL (1.2-3.4) 08/17/22 07:40 Yell # (Auto) 1.45 K/uL (0.24-0.82) H 08/17/22 07:40 Eos # (Auto) 0.01 K/uL (0-0.50) 08/17/22 07:40 Baso # (Auto) 0.08 K/uL (0-0.2) 08/17/22 07:40 Immature Gran # (Auto) 0.15 K/uL (0.00-0.02) H 08/17/22 07:40 Sodium 142 mmol/L (136-145) 08/18/22 06:37 Potassium 2.7 mmol/L (3.5-5.1) L 08/18/22 06:37 Chloride 112 mmol/L (98-107) H 08/18/22 06:37 Carbon Dioxide 23 mmol/L (21-32) 08/18/22 06:37 Anion Gap 7 (3-11) 08/18/22 06:37 BUN 10 mg/dl (6-23) 08/18/22 06:37 Creatinine 0.69 mg/dl (0.6-1.2) 08/18/22 06:37 Est Cr Clr Drug Dosing 105.5 ml/min 08/18/22 06:37 Est GFR ( Amer) 116.0 ml/min 08/18/22 06:37 Est GFR (Non-Af Amer) 100.1 ml/min 08/18/22 06:37 BUN/Creatinine Ratio 14.5 (10-20) 08/18/22 06:37 Glucose 91 mg/dl (70-99(Fasting)) 08/18/22 06:37 Lactate 1.4 mmol/L (0.4-2.0) 08/17/22 07:48 Calcium 8.7 mg/dl (8.5-10.1) 08/18/22 06:37 Total Bilirubin 1.4 mg/dl (0.2-1.0) H 08/17/22 07:40 AST 32 U/L (13-39) 08/17/22 07:40 ALT 20 U/L (7-52) 11 07:40 Alkaline Phosphatase 86 U/L (34-104) 11 07:40 Troponin I High Sens 8.4 pg/ml (0-14) 08/17/22 22:38 Total Protein 7.6 gm/dl (6.0-8.3) 08/17/22 07:40 Albumin 4.4 gm/dl (3.4-5.0) 08/17/22 07:40 Globulin 3.2 gm/dl (2.5-4.0) 08/17/22 07:40 Albumin/Globulin Ratio 1.4 (0.9-2) 08/17/22 07:40 Lipase < 3 U/L (11-82) L 08/17/22 07:40 Procalcitonin 0.25 ng/ml (0-0.5) 08/17/22 07:40 Urine Color Dark Yellow 08/17/22 07:45 Urine Appearance Cloudy (Clear) A 08/17/22 07:45 Urine pH 5.5 (4.5-7.5) 08/17/22 07:45 Ur Specific [place] 1.018 (1.000-1.030) 08/17/22 07:45 Urine Protein 1+ (Negative) H 08/17/22 07:45 Urine Glucose (UA) Negative (Negative) 08/17/22 07:45 Urine Ketones 3+ (Negative) H 08/17/22 07:45 Urine Blood 1+ (Negative) H 08/17/22 07:45 Urine Nitrite Negative (Negative) 08/17/22 07:45 Urine Bilirubin 1+ (Negative) H 08/17/22 07:45 Urine Urobilinogen Negative (Negative) 08/17/22 07:45 Ur Leukocyte Esterase Trace (Negative) H 08/17/22 07:45 Urine WBC (Auto) 1-5 /hpf (0-5) 08/17/22 07:45 Urine RBC (Auto) 5-10 /hpf (0-4) H 08/17/22 07:45 U Hyaline Cast (Auto) 5-10 /lpf (0-5) H 08/17/22 07:45 U Epithel Cells (Auto) >30 /lpf (0-5) H 08/17/22 07:45 Urine Bacteria (Auto) Negative (Negative) 08/17/22 07:45 Stl C. cayetanensis PCR Not Detected (NotDetected) 08/17/22 14:27 Stool Rotavirus A PCR Not Detected (NotDetected) 08/17/22 14:27 Stl Adenov F 40/41 PCR Not Detected (NotDetected) 08/17/22 14:27 Stool Astrovirus (PCR) Not Detected (NotDetected) 08/17/22 14:27 Stool Campylobacter PCR Not Detected (NotDetected) 08/17/22 14:27 Stool Cryptosporidium PCR Not Detected (NotDetected) 08/17/22 14:27 Stl E.coli Shiga Tox PCR Not Detected (NotDetected) 08/17/22 14:27 Stl Enterotoxigenic E PCR Not Detected (NotDetected) 08/17/22 14:27 Stool EPEC (PCR) Not Detected (NotDetected) 08/17/22 14:27 Stool EAEC (PCR) Not Detected (NotDetected) 08/17/22 14:27 Stl E. histolytica PCR Not Detected (NotDetected) 08/17/22 14:27 Stool Giardia Lamblia PCR Not Detected (NotDetected) 08/17/22 14:27 Stool Salmonella PCR Not Detected (NotDetected) 08/17/22 14:27 Stool Sapovirus (PCR) Not Detected (NotDetected) 08/17/22 14:27 Stl P. shigelloides PCR Not Detected (NotDetected) 08/17/22 14:27 Stl Shigella/EIEC PCR Not Detected (NotDetected) 08/17/22 14:27 St Y.enterocolitica PCR Not Detected (NotDetected) 08/17/22 14:27 Stool Vibrio (PCR) Not Detected (NotDetected) 08/17/22 14:27 Stl Vibrio cholerae PCR Not Detected (NotDetected) 08/17/22 14:27 Stl Norovirus GI/GII PCR Not Detected (NotDetected) 08/17/22 14:27 SARS-CoV-2, RNA, NAAT NEGATIVE (NEGATIVE) 08/17/22 10:25 Impressions Abdomen/Pelvis CT 08/17/22 08:31 CT OF THE ABDOMEN AND PELVIS WITHOUT CONTRAST CLINICAL HISTORY: Pyelonephritis w/ h/o kidney stones COMPARISON STUDY: Abdominal series February 12, 2015. Right upper quadrant ultrasound December 12, 2014. CT of the abdomen and pelvis May 06, 2014. Chest CT November 20, 2014. TECHNIQUE: Axial images of the abdomen and pelvis were obtained without IV contrast. Images were reviewed in the axial, sagittal, and coronal planes. Automated exposure control was utilized for the study. A dose lowering technique was utilized adhering to the principles of ALARA. FINDINGS: A trace right pleural effusion with right pleural thickening is unchanged from prior exams. This favors a chronic pleural effusion. Subpleural right lower lobe opacity with volume loss is also unchanged. This favors round atelectasis. No pneumatosis, free air or portal venous gas is present. Intracanalicular electrodes are partially imaged on this exam. Postoperative findings within the spine are present. Numerous bilateral renal calculi measure up to 4 mm. There is no hydronephrosis. No ureteral calculi are present. There is no perinephric infiltration. No renal fluid collection is identified on this unenhanced examination. A right pelvic calcification represents a phlebolith. Evaluation of the remainder of the abdomen and pelvis is suboptimal on this unenhanced exam. Liver, spleen, adrenal glands and pancreas are unremarkable. Moderate plaque of the abdominal aorta is noted. Infrarenal abdominal aorta is ectatic, measuring 2.4 cm. There is no evidence for a bowel obstruction. The appendix is not visualized. Mild bilateral groin stranding is a nonspecific finding. This is symmetric. IMPRESSION: 1. Bilateral nephrolithiasis. No ureteral calculi or hydronephrosis. 2. No bowel obstruction. No bowel wall thickening on unenhanced exam. 3. Moderate plaque within the abdominal aorta which is ectatic, measuring approximately 2.4 cm in caliber. 4. Chronic small right pleural effusion with subpleural right lower lobe opacity consistent with round atelectasis. 5. Nonspecific mild symmetric bilateral groin stranding. ACT 112: Negative or not required by law. Electronically signed by: Ricardo Mcdaniels M.D. 08/17/2022 9:06 AM
[2022-08-18] MEDS ORDERED: ALUMINUM/MAGNESIUM SUSP 18 ML, LIDOCAINE VISCOUS 2% SOLN 6 ML, BARCODE IDENTIFIER 1 EACH PO ONE (09:55)
[2022-08-18] MEDS ORDERED: FAMOTIDINE 20 MG TAB PO SCH (10:00)
[2022-08-18] MEDS: ACETAMINOPHEN 325 MG TAB PO PRN (15:02)
[2022-08-18] MEDS: ONDANSETRON INJ 2 MG/ML 2 ML VIAL IV PRN ×2 (15:03→20:38)
--- NOTE | 2022-08-18 16:34 | Electrocardiogram Report ---
Test Reason : Blood Pressure : / mmHG Vent. Rate : 079 BPM Atrial Rate : 079 BPM P-R Int : 124 ms QRS Dur : 086 ms QT Int : 398 ms P-R-T Axes : 032 083 024 degrees QTc Int : 456 ms Poor data quality, interpretation may be adversely affected Normal sinus rhythm Low voltage QRS Borderline ECG When compared with ECG of 17-AUG-2022 10:17, No significant change was found Confirmed by Job Finn ([id number]) on 08/18/2022 4:34:03 PM Referred By: REFERRED SELF Confirmed By:Job Finn
--- NOTE | 2022-08-18 16:48 | Electrocardiogram Report ---
Test Reason : Blood Pressure : / mmHG Vent. Rate : 073 BPM Atrial Rate : 073 BPM P-R Int : 138 ms QRS Dur : 088 ms QT Int : 432 ms P-R-T Axes : 137 083 141 degrees QTc Int : 475 ms Unusual P axis, possible ectopic atrial rhythm with undetermined rhtyhm irregularity Lateral infarct , age undetermined Possible Inferior infarct , age undetermined Abnormal ECG When compared with ECG of 17-AUG-2022 11:36, (unconfirmed) Ectopic atrial rhythm has replaced Sinus rhythm Lateral infarct is now Present T wave inversion now evident in Lateral leads Confirmed by Job Finn ([id number]) on 08/18/2022 4:47:30 PM Referred By: REFERRED SELF Confirmed By:Job Finn
[2022-08-18] MEDS: rOPINIRole HCL 1 MG TABLET PO SCH (20:50)
[2022-08-18] MEDS: PRAZOSIN HCL 1 MG CAP PO SCH (20:50)
[2022-08-18] MEDS: ziprasidone HCL 80 MG CAP PO SCH (20:54)
[2022-08-18] MEDS ORDERED: PANTOprazole 40 MG in SYRINGE 0 ML IV SCH (23:45)
[2022-08-19] MEDS: FAMOTIDINE 20 MG in SYRINGE 3 ML IV SCH ×2 (01:18→08:57)
[2022-08-19] MEDS ORDERED: POTASSIUM CHLORIDE 20 MEQ/15 ML UDC PO STA (01:37)
[2022-08-19 06:06] LABS: Basophils # (auto) 0.05 K/uL (0-0.2); Basophils % (auto) 0.7 %; Eosinophils # (auto) 0.61 K/uL (0-0.50); Eosinophils % (auto) 8.6 %; Hematocrit (blood only) 36.4 % (34.1-44.9); Hemoglobin 12.5 g/dl (12.0-16.0); Immature Granulocytes # (auto) 0.02 K/uL (0.00-0.02); Immature Granulocytes % (auto) 0.3 %; Lymphocytes # (auto) 2.33 K/uL (1.2-3.4); Mean Corpuscular Hemoglobin 32.9 pg (25.0-34.0); Mean Corpuscular Hgb Conc 34.3 g/dL (32.0-36.0); Mean Corpuscular Volume 95.8 fL (80.0-100.0); Mean Platelet Volume 9.7 fL (9.4-12.3); Monocytes # (auto) 0.43 K/uL (0.24-0.82); Monocytes % (auto) 6.1 %; Neutrophils # (auto) 3.63 K/uL (1.4-6.5); Neutrophils % (auto) 51.3 %; Platelet Count 232 K/uL (130-400); RDW Coefficient of Variation 13.7 % (11.5-14.5); RDW Standard Deviation 48.6 fL (36.4-46.3); White Blood Count 7.07 K/ul (4.8-10.8)
[2022-08-19] MEDS: cefTRIAXone SODIUM 1,000 MG in DEXTROSE 5% 50 ML IV SCH (06:34)
[2022-08-19 07:03] LABS: Albumin Globulin Ratio 1.3 (0.9-2); BUN Creatinine Ratio 10.4 (10-20); Bilirubin,Total 0.4 mg/dl (0.2-1.0); Calcium 8.7 mg/dl (8.5-10.1); Creatinine Clr Calc Pharmacy 108.6 ml/min; Est GFR (African American) 117.1 ml/min; Est GFR (Non-African American) 101.1 ml/min; Globulin 2.4 gm/dl (2.5-4.0); Magnesium 1.7 mg/dl (1.7-2.4); Potassium 3.5 mmol/L (3.5-5.1); Total Protein 5.4 gm/dl (6.0-8.3)
[2022-08-19] MEDS: BENZTROPINE MESYLATE 1 MG TAB PO SCH (08:57)
[2022-08-19] MEDS: GABAPENTIN 300 MG CAP PO SCH (08:57)
[2022-08-19] MEDS: busPIRone 15 MG TAB PO SCH (08:57)
[2022-08-19] MEDS: DULoxetine HCL 30 MG CAP PO SCH (08:57)
[2022-08-19] MEDS: TOPIRAMATE 100 MG TAB PO SCH (08:57)
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
--- NOTE | 2022-08-19 10:23 | Hospitalist Progress Note ---
Date of Service August 19, 2022 Assessment & Plan (1) Pyelonephritis: (2) Abdominal pain: (3) Nausea and vomiting: (4) Hypokalemia: Plan: -Patient was recently seen at [facility] on 08/14 and 08/15 for similar complaints and was diagnosed with acute cystitis she was treated with a dose of macrobid in the ER, and given Macrobid 100 mg BID x 7d course. She returned to the ER on 08/15 and was diagnosed with acute pyelonephritis. -CT abdomen and pelvis on admission shows bilateral nephrolithiasis; moderate plaque within abdominal aorta which is ectatic measuring 2.4cm. WBC down trended from 24 > 9.15 > 7.07 Hemoglobin improved after initial downtrend from 14.8-11.7 > 12.5 Potassium is 2.7, repleted Stool PCR negative Blood culture no growth Fecal occult positive Urine Cx pending C.dif pending. Plan: -GI consulted given her fecal occult positive; no history of colonoscopy in the past. Recommend outpatient follow-up for colonoscopy and obtaining CT. -Will advance diet as tolerated -Continue on ceftriaxone for now; we will follow-up on urine culture; pending. (5) Bipolar disorder: Plan: - Continue buspar, cymbalta, gabapentin, prazosin (6) Hepatitis C: Plan: DVT ppx: - teds, scds, ambulatory CODE: Full code Dispo: From home, discharge home after resolution of medical issues Admission and Anticipated Discharge Date Admission Date: August 17, 2022 Subjective Patient seen and examined at bedside. She reports 1 episode of loose bowel movement overnight. No blood or mucus seen as per the patient. No complaint of abdominal pain, nausea or vomiting. Review of Systems Review of Systems: All systems reviewed & are unremarkable except as noted in Subjective Physical Exam Physical Exam: Constitutional: WD/WN, vitals as above, NAD, sitting up in bed, pleasant, conversing easily Respiratory: normal respiratory effort, lungs clear to auscultation, no wheeze, rales, rhonchi. Normal insp/exp effort, no accessory muscle use Cardiovascular: RRR, no murmur, no edema Vessels: no JVD or carotid bruit Chest: normal inspection of chest Abdomen: Soft, nontender nondistended. Musculoskeletal: no cyanosis or clubbing, extremities motor strength 5/5 Skin: no rashes, warm and dry normal turgor Neurologic: PERRL, EOMI, accommodation nl, no face palsy, no dysarthria CN's II- XI intact bilaterally and moves all extremities Psychiatric: A+Ox3, euthymic affect Lymphatic: no cervical or axillary lymphadenopathy : deferred Results & Data Results & Data ([facility]) Vital Signs (Past 12 Hours) Vital Signs Temp Pulse Resp BP Pulse Ox O2 Del Method 08/19/22 07:42 37.0 C 66 18 99/66 L 94 Room Air 08/19/22 03:07 36.9 C 74 18 126/77 95 Room Air 08/18/22 23:13 36.9 C 73 18 96/61 L 94 Room Air Laboratory Results Laboratory Results WBC 7.07 K/ul (4.8-10.8) 08/19/22 05:26 RBC 3.80 M/uL (3.93-5.22) L 08/19/22 05:26 Hgb 12.5 g/dl (12.0-16.0) 08/19/22 05:26 Hct 36.4 % (34.1-44.9) 08/19/22 05:26 MCV 95.8 fL (80.0-100.0) 08/19/22 05:26 MCH 32.9 pg (25.0-34.0) 08/19/22 05:26 MCHC 34.3 g/dL (32.0-36.0) 08/19/22 05:26 RDW Std Deviation 48.6 fL (36.4-46.3) H 08/19/22 05:26 RDW Coeff of Trey 13.7 % (11.5-14.5) 08/19/22 05:26 Plt Count 232 K/uL (130-400) 08/19/22 05:26 MPV 9.7 fL (9.4-12.3) 08/19/22 05:26 Immature Gran % (Auto) 0.3 % 08/19/22 05:26 Neut % (Auto) 51.3 % 08/19/22 05:26 Lymph % (Auto) 33.0 % 08/19/22 05:26 Henry % (Auto) 6.1 % 08/19/22 05:26 Eos % (Auto) 8.6 % 08/19/22 05:26 Baso % (Auto) 0.7 % 08/19/22 05:26 Neut # (Auto) 3.63 K/uL (1.4-6.5) 08/19/22 05:26 Lymph # (Auto) 2.33 K/uL (1.2-3.4) 08/19/22 05:26 Henry # (Auto) 0.43 K/uL (0.24-0.82) 08/19/22 05:26 Eos # (Auto) 0.61 K/uL (0-0.50) H 08/19/22 05:26 Baso # (Auto) 0.05 K/uL (0-0.2) 08/19/22 05:26 Immature Gran # (Auto) 0.02 K/uL (0.00-0.02) 08/19/22 05:26 Sodium 142 mmol/L (136-145) 08/19/22 05:26 Potassium 3.5 mmol/L (3.5-5.1) D 08/19/22 05:26 Chloride 114 mmol/L (98-107) H 08/19/22 05:26 Carbon Dioxide 25 mmol/L (21-32) 08/19/22 05:26 Anion Gap 3 (3-11) 08/19/22 05:26 BUN 7 mg/dl (6-23) 08/19/22 05:26 Creatinine 0.67 mg/dl (0.6-1.2) 08/19/22 05:26 Est Cr Clr Drug Dosing 108.6 ml/min 08/19/22 05:26 Est GFR ( Amer) 117.1 ml/min 08/19/22 05:26 Est GFR (Non-Af Amer) 101.1 ml/min 08/19/22 05:26 BUN/Creatinine Ratio 10.4 (10-20) 08/19/22 05:26 Glucose 109 mg/dl (70-99(Fasting)) H 08/19/22 05:26 Lactate 1.4 mmol/L (0.4-2.0) 08/17/22 07:48 Calcium 8.7 mg/dl (8.5-10.1) 08/19/22 05:26 Magnesium 1.7 mg/dl (1.7-2.4) 08/19/22 05:26 Total Bilirubin 0.4 mg/dl (0.2-1.0) D 08/19/22 05:26 AST 14 U/L (13-39) 08/19/22 05:26 ALT 14 U/L (7-52) 08/19/22 05:26 Alkaline Phosphatase 55 U/L (34-104) 08/19/22 05:26 Troponin I High Sens 8.4 pg/ml (0-14) 08/17/22 22:38 Total Protein 5.4 gm/dl (6.0-8.3) L D 08/19/22 05:26 Albumin 3.0 gm/dl (3.4-5.0) L 08/19/22 05:26 Globulin 2.4 gm/dl (2.5-4.0) L 08/19/22 05:26 Albumin/Globulin Ratio 1.3 (0.9-2) 08/19/22 05:26 Lipase < 3 U/L (11-82) L 08/17/22 07:40 Procalcitonin 0.25 ng/ml (0-0.5) 08/17/22 07:40 Urine Color Dark Yellow 08/17/22 07:45 Urine Appearance Cloudy (Clear) A 08/17/22 07:45 Urine pH 5.5 (4.5-7.5) 08/17/22 07:45 Ur Specific [place] 1.018 (1.000-1.030) 08/17/22 07:45 Urine Protein 1+ (Negative) H 08/17/22 07:45 Urine Glucose (UA) Negative (Negative) 08/17/22 07:45 Urine Ketones 3+ (Negative) H 08/17/22 07:45 Urine Blood 1+ (Negative) H 08/17/22 07:45 Urine Nitrite Negative (Negative) 08/17/22 07:45 Urine Bilirubin 1+ (Negative) H 08/17/22 07:45 Urine Urobilinogen Negative (Negative) 08/17/22 07:45 Ur Leukocyte Esterase Trace (Negative) H 08/17/22 07:45 Urine WBC (Auto) 1-5 /hpf (0-5) 08/17/22 07:45 Urine RBC (Auto) 5-10 /hpf (0-4) H 08/17/22 07:45 U Hyaline Cast (Auto) 5-10 /lpf (0-5) H 08/17/22 07:45 U Epithel Cells (Auto) >30 /lpf (0-5) H 08/17/22 07:45 Urine Bacteria (Auto) Negative (Negative) 08/17/22 07:45 Stool Occult Bld Scrn Positive (Negative) A 08/18/22 Unknown Stl C. cayetanensis PCR Not Detected (NotDetected) 08/17/22 14:27 Stool Rotavirus A PCR Not Detected (NotDetected) 08/17/22 14:27 Stl Adenov F 40/41 PCR Not Detected (NotDetected) 08/17/22 14:27 Stool Astrovirus (PCR) Not Detected (NotDetected) 08/17/22 14:27 Stool Campylobacter PCR Not Detected (NotDetected) 08/17/22 14:27 Stool Cryptosporidium PCR Not Detected (NotDetected) 08/17/22 14:27 Stl E.coli Shiga Tox PCR Not Detected (NotDetected) 08/17/22 14:27 Stl Enterotoxigenic E PCR Not Detected (NotDetected) 08/17/22 14:27 Stool EPEC (PCR) Not Detected (NotDetected) 08/17/22 14:27 Stool EAEC (PCR) Not Detected (NotDetected) 08/17/22 14:27 Stl E. histolytica PCR Not Detected (NotDetected) 08/17/22 14:27 Stool Giardia Lamblia PCR Not Detected (NotDetected) 08/17/22 14:27 Stool Salmonella PCR Not Detected (NotDetected) 08/17/22 14:27 Stool Sapovirus (PCR) Not Detected (NotDetected) 08/17/22 14:27 Stl P. shigelloides PCR Not Detected (NotDetected) 08/17/22 14:27 Stl Shigella/EIEC PCR Not Detected (NotDetected) 08/17/22 14:27 St Y.enterocolitica PCR Not Detected (NotDetected) 08/17/22 14:27 Stool Vibrio (PCR) Not Detected (NotDetected) 08/17/22 14:27 Stl Vibrio cholerae PCR Not Detected (NotDetected) 08/17/22 14:27 Stl Norovirus GI/GII PCR Not Detected (NotDetected) 08/17/22 14:27 SARS-CoV-2, RNA, NAAT NEGATIVE (NEGATIVE) 08/17/22 10:25 Impressions Abdomen/Pelvis CT 08/17/22 08:31 CT OF THE ABDOMEN AND PELVIS WITHOUT CONTRAST CLINICAL HISTORY: Pyelonephritis w/ h/o kidney stones COMPARISON STUDY: Abdominal series February 12, 2015. Right upper quadrant ultrasound December 12, 2014. CT of the abdomen and pelvis May 06, 2014. Chest CT November 20, 2014. TECHNIQUE: Axial images of the abdomen and pelvis were obtained without IV contrast. Images were reviewed in the axial, sagittal, and coronal planes. Automated exposure control was utilized for the study. A dose lowering technique was utilized adhering to the principles of ALARA. FINDINGS: A trace right pleural effusion with right pleural thickening is uncha nged from prior exams. This favors a chronic pleural effusion. Subpleural right lower lobe opacity with volume loss is also unchanged. This favors round atelectasis. No pneumatosis, free air or portal venous gas is present. Intracanalicular electrodes are partially imaged on this exam. Postoperative findings within the spine are present. Numerous bilateral renal calculi measure up to 4 mm. There is no hydronephrosis. No ureteral calculi are present. There is no perinephric infiltration. No renal fluid collection is identified on this unenhanced examination. A right pelvic calcification represents a phlebolith. Evaluation of the remainder of the abdomen and pelvis is suboptimal on this unenhanced exam. Liver, spleen, adrenal glands and pancreas are unremarkable. Moderate plaque of the abdominal aorta is noted. Infrarenal abdominal aorta is ectatic, measuring 2.4 cm. There is no evidence for a bowel obstruction. The appendix is not visualized. Mild bilateral groin stranding is a nonspecific finding. This is symmetric. IMPRESSION: 1. Bilateral nephrolithiasis. No ureteral calculi or hydronephrosis. 2. No bowel obstruction. No bowel wall thickening on unenhanced exam. 3. Moderate plaque within the abdominal aorta which is ectatic, measuring approximately 2.4 cm in caliber. 4. Chronic small right pleural effusion with subpleural right lower lobe opacity consistent with round atelectasis. 5. Nonspecific mild symmetric bilateral groin stranding. ACT 112: Negative or not required by law. Electronically signed by: Ricarod Mcdaniels M.D. 08/17/2022 9:06 AM
--- NOTE | 2022-08-19 14:15 | Discharge Summary ---
Date of Service August 19, 2022 Admission HPI Per Admitting Provider This is a 52-year-old female with PMHx of nephrolithiasis, bipolar disorder, anxiety, hepatitis C, hypokalemia, who presents to the ER with worsening abdominal pain, nausea, diarrhea. She states that approximately 1 week ago she had developed bilateral posterior flank pain, fevers, chills, dysuria and abdominal pain. She visited [facility] ER on 08/14 due to abdominal complaints and there she was started on a course of Macrobid. Imaging of the abdomen was taken CT IV contrast which was without any acute obstructing nephrolithiasis. On 08/15, she returned due to continued abdominal complaints. Patient notes that she was encouraged to continue the antibiotic, WBC of 11 trended to 12 at that time. She was discharged home. Pt represents today with worsening abdominal pain, nausea and vomiting x 2, and diarrhea which worsened in the past 3 days with having three bouts today. Dysuria has improved but still feels a pinching sensation. She has had diarrhea since May, but has not been worked up for it. PT denies any bloody stools, or changes in diet. She has not eaten any raw or undercooked foods, picnic foods. Pt notes she drinks bottled water when she is visiting family in [place] only, but lives in [place]. Pt denies any recent sick contacts with similar appearance. Principal Diagnosis Nausea/vomiting likely secondary to Macrobid side effects Hypokalemia Viral gastroenteritis Discharge Exam Constitutional: WD/WN, vitals as above, NAD, sitting up in bed, pleasant, conver sing easily Respiratory: normal respiratory effort, lungs clear to auscultation, no wheeze, rales, rhonchi. Normal insp/exp effort, no accessory muscle use Cardiovascular: RRR, no murmur, no edema Vessels: no JVD or carotid bruit Chest: normal inspection of chest Abdomen: Soft, nontender nondistended. Musculoskeletal: no cyanosis or clubbing, extremities motor strength 5/5 Skin: no rashes, warm and dry normal turgor Neurologic: PERRL, EOMI, accommodation nl, no face palsy, no dysarthria CN's II- XI intact bilaterally and moves all extremities Psychiatric: A+Ox3, euthymic affect Lymphatic: no cervical or axillary lymphadenopathy : deferred Discharge Data Allergies Allergy/AdvReac Type Severity Reaction Status Date / Time pantoprazole Allergy Intermediate seizures Unverified 08/17/22 11:31 adhesive Allergy Unknown BREAK OUT Verified 08/17/22 11:31 bee venom protein (honey bee) Allergy Unknown unknown Unverified 08/17/22 11:31 codeine Allergy Unknown VOMITING Unverified 08/17/22 11:31 latex Allergy Unknown ALLERGY TO Verified 08/17/22 11:31 POWDER IN GLOVES Consultations 08/19/22 08:00 Consult Gastroenterology Routine Ordered Studies 08/17/22 08:31 CT abd pelvis wo con Stat Hospital Course (1) Abdominal pain: (2) Nausea and vomiting: (3) Hypokalemia: (4) Bipolar disorder: (5) Hepatitis C: Plan Patient is a 52-year-old female with past with history of nephrolithiasis, bipolar disorder, hepatitis C presented to the ED with nausea, vomiting, abdominal pain and diarrhea. Patient was seen in [place] emergency department for possible UTI. She was started on a course of Macrobid. Patient's symptoms started after the initiation of Macrobid. Patient was found to be hypokalemic as well. Patient was admitted to telemetry for further care and monitoring. Repeat urinalysis did not show any signs of infection. She was treated with IV hydration and electrolyte repletion. Ceftriaxone was started; Macrobid was discontinued. Urine culture from [place] ED was negative for any growth. Patient hemoglobin down trended to 11 from 14 while she was inpatient; fecal occult follow-up was positive. GI was consulted; recommended outpatient endoscopy and colonoscopy. Her hemoglobin improved to 12 on the day of the discharge. Her diarrhea was resolved as well. Her GI PCR was negative. Patient was discharged with instruction to follow-up with her primary care doctor and GI as outpatient. Antibiotics were discontinued at discharge given resolution of her symptoms and negative urine culture. Total Time Total Time Spent Total Time Spent (In Minutes): 35 Total Time Includes: Examination of the Patient, Discharge Planning, Medication Reconciliation, Communication With Other Providers and Other Discharge Plan Discharge Items Patient Disposition: Hospice - Home Reason For Visit: ABDOMINAL PAIN, N/V, HYPOKALEMIA Discharge Diagnosis: Nausea/vomiting likely secondary to Macrobid side effects Hypokalemia Viral gastroenteritis Activity: Resume your previous activity Non-emergency contact: Primary Care Provider Call non-emergency contact if: you have any medication questions and your symptoms worsen Follow-up/Referrals: Jewel Platt MD [Physician] - (Date & Time 08/23/2022 11:00 AM Provider Jewel Platt III, MD Department [facility] ) Diet: Regular Addtl Attending Provider Instructions: You are admitted to the hospital with nausea, vomiting and diarrhea. The symptoms are most likely due to side effects of Macrobid. Please stop taking it. Urine culture from [facility] did not show any growth. The fecal occult blood was positive during the hospitalization. You will need GI follow-up as outpatient for colonoscopy and endoscopy. A prescription for Pepcid 20 mg once daily sent to your pharmacy. Please follow-up with your primary care doctor on Tuesday. Pending Studies at Discharge: No Stand-Alone Forms: My [facility] Medications and DC Order Prescriptions: New famotidine 20 mg Tablet 20 mg PO QAM Qty: 14 0RF Continued prazosin 1 mg capsule 8 mg PO HS benztropine 1 mg tablet 1 mg PO BID topiramate 100 mg tablet 100 mg PO BID buspirone 15 mg tablet 15 mg PO TID duloxetine 30 mg capsule,delayed release(DR/EC) 90 mg PO QAM ziprasidone HCl 80 mg capsule 80 mg PO HS gabapentin 300 mg capsule 300 mg PO TID Rx Instructions: As per [facility] list it is self reported Discontinued nitrofurantoin monohyd/m-cryst 100 mg capsule 100 mg PO BID Rx Instructions: Started 08/14. Take for 7 days. Discharge Orders: Discharge Order (Routine); Ordered 08/19/22 Ordered By: Naif Payne Admission Data Admit Date/Time: 08/17/22 10:47 Attending Provider: Naif Payne Admit Provider: Shannon Zaman Primary Care Provider: PCP,NO Other Providers: Samaria Nieves ; Shaka Tracy ; Roseanne Young ; Stephany Luna ; Isabella Moeller Janet R. ; Enzo Brewster ; Leela Romero ; Brody Shah ; Kevin Moss ; Errol Fields ; Sanya Marks ; Claudia Gamez ; Lexie Paz ; Tatianna Montanez ; Corie Williamson ; Rodrigo Kelly ; Nico Tapia ; Paul Shah ; Jessica Rider ; Jeff Portillo Jr Other Interventions: Discharge Summary Assessment (RN) Last Done: 08/19/22 13:38
== END 2022-08-19 14:00 | disposition home or self-care (01) ==
LOC: ED 07:21 → INTOOBSV 10:47 → 2N 10:47 → SUATTDRO 10:47 → 2N 13:10
DX: R11.2 Nausea with vomiting, unspecified; A08.4 Viral intestinal infection, unspecified; F31.9 Bipolar disorder, unspecified; Z91.048 Other nonmedicinal substance allergy status; B19.20 Unspecified viral hepatitis C without hepatic coma; Z79.899 Other long term (current) drug therapy; Z88.5 Allergy status to narcotic agent; N12 Tubulo-interstitial nephritis, not specified as acute or chronic; Z88.8 Allergy status to other drugs, medicaments and biological substances; Z91.030 Bee allergy status; Z87.891 Personal history of nicotine dependence; Z91.040 Latex allergy status

== ENCOUNTER 2022-08-31 13:24 | Observation (INO) ==
[2022-08-31] MEDS ORDERED: ONDANSETRON INJ 2 MG/ML 2 ML VIAL IV STA (14:01)
[2022-08-31] MEDS ORDERED: SODIUM CHLORIDE 0.9% 1000ML 1,000 ML IV STA (14:01)
[2022-08-31] MEDS ORDERED: fentaNYL citrate 100 MCG/2 ML VIAL IV STA (14:01)
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
[2022-08-31 14:11] LABS: Basophils # (auto) 0.05 K/uL (0-0.2); Basophils % (auto) 0.4 %; Eosinophils # (auto) 0.62 K/uL (0-0.50); Eosinophils % (auto) 5.2 %; Hematocrit (blood only) 44.9 % (34.1-44.9); Hemoglobin 15.2 g/dl (12.0-16.0); Immature Granulocytes # (auto) 0.03 K/uL (0.00-0.02); Immature Granulocytes % (auto) 0.3 %; Lymphocytes # (auto) 3.65 K/uL (1.2-3.4); Lymphocytes % (auto) 30.5 %; Mean Corpuscular Hemoglobin 31.9 pg (25.0-34.0); Mean Corpuscular Hgb Conc 33.9 g/dL (32.0-36.0); Mean Corpuscular Volume 94.3 fL (80.0-100.0); Mean Platelet Volume 9.4 fL (9.4-12.3); Monocytes # (auto) 0.81 K/uL (0.24-0.82); Monocytes % (auto) 6.8 %; Neutrophils % (auto) 56.8 %; Platelet Count 402 K/uL (130-400); RDW Coefficient of Variation 13.5 % (11.5-14.5); RDW Standard Deviation 47.4 fL (36.4-46.3); Red Blood Count 4.76 M/uL (3.93-5.22); White Blood Count 11.96 K/ul (4.8-10.8)
[2022-08-31 14:29] LABS: Appearance Urine Cloudy (Clear); Bacteria Urine Automated Negative (Negative); Bilirubin Urine Negative (Negative); Blood Urine Trace (Negative); Color Urine Dark Yellow; Epithelial Cell Urine Auto >30 /lpf (0-5); Glucose Urine UA Negative (Negative); Ketones Urine 1+ (Negative); Leukocyte Esterase Urine 1+ (Negative); Nitrite Urine Negative (Negative); Protein Urine 1+ (Negative); Specific Gravity Urine 1.017 (1.000-1.030); Urobilinogen Urine Negative (Negative)
[2022-08-31 14:35] LABS: Albumin Globulin Ratio 1.2 (0.9-2); Albumin Level 4.3 gm/dl (3.4-5.0); BUN Creatinine Ratio 12.9 (10-20); Bilirubin,Total 0.8 mg/dl (0.2-1.0); Calcium 10.2 mg/dl (8.5-10.1); Creatinine Clr Calc Pharmacy 78.1 ml/min; Est GFR (African American) 91.3 ml/min; Est GFR (Non-African American) 78.8 ml/min; Globulin 3.6 gm/dl (2.5-4.0); Potassium 2.6 mmol/L (3.5-5.1); Total Protein 7.9 gm/dl (6.0-8.3)
[2022-08-31 14:38] LABS: Troponin I High Sensitivity 8.5 pg/ml (0-14)
[2022-08-31] MEDS ORDERED: POTASSIUM CHLORIDE / WTR 10 MEQ/100 ML PLCT IV ONE (14:42)
[2022-08-31] MEDS ORDERED: POTASSIUM CHLORIDE CRTAB 20 MEQ TABCR PO STA (14:42)
[2022-08-31 15:13] LABS: Influenza A virus by PCR Negative (Neg); Influenza B virus by PCR Negative (Neg); RSV by PCR Negative (Neg); SARS CoV2 RNA(COVID-19)Cepheid NEGATIVE (Negative)
[2022-08-31] MEDS ORDERED: OPTIRAY 350 100ml IV ONE (15:15)
[2022-08-31 15:17] LABS: Mucus Urine Present (None Prsent)
--- NOTE | 2022-08-31 15:27 | CT Scan Report ---
CT abd pelvis IV con only CLINICAL HISTORY: abdominal pain; nausea; vomiting TECHNIQUE: Helical axial images of the abdomen and pelvis were obtained and displayed. Automated dose lowering techniques and/or adjustment according to patient size were utilized for this exam. This e xam was performed with intravenous contrast. CT DOSE: 290.64 mGy.cm COMPARISON: Comparison is made to CT abdomen pelvis 08/17/2022 FINDINGS: Lower chest: Scarring is seen in the right greater than left lower lobe. Liver: Unremarkable. No focal lesions are seen. Gallbladder and biliary tree: Patient is status post cholecystectomy. No intra- or extrahepatic bilia ry ductal dilation. Pancreas: Unremarkable, no focal lesions. Spleen: Unremarkable. Adrenals: Thickening is seen in the bilateral adrenal glands. Kidneys and ureters: Nonobstructive nephrolithiasis is seen. There is a 14 mm cyst in the left kidney with additional smaller subcentimeter hypodensities which are too small to characterize. Bladder: Limited evaluation due to underdistention. Reproductive organs: Unremarkable. Bowel: There is thickening of the large bowel at the splenic flexure. A few diverticula are seen. Lymph nodes Retroperitoneal: Unremarkable. Pelvic: Unremarkable. Mesenteric: Unremarkable. Peritoneum: Normal. Vessels: Atherosclerotic calcifications are seen. Abdominal wall: Unremarkable. Bones: Degenerative changes in the visualized spine. Posterior fixation hardware is seen spanning L4- S1. Spinal stimulator is noted. IMPRESSION: Segmental thickening of the splenic flexure is favored to represent colitis, likely ischemic colitis versus infectious/inflammatory. No evidence of pneumatosis coli or perforation. ACT 112: Negative or not required by law. Electronically signed by: Darío Fofana M.D. 08/31/2022 3:25 PM
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
[2022-08-31 16:33] LABS: Magnesium 1.9 mg/dl (1.7-2.4)
[2022-08-31] MEDS ORDERED: metroNIDAZOLE 500 MG/100 ML BAG IV ONE (16:45)
[2022-08-31] MEDS ORDERED: PANTOprazole 40 MG in SYRINGE 0 ML IV SCH (16:45)
[2022-08-31] MEDS ORDERED: CIPROFLOXACIN / D5W 400 MG/200 ML BAG IV ONE (16:45)
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
[2022-08-31] MEDS ORDERED: MAGNESIUM HYDROXIDE SUSP 30 ML UDC PO PRN (18:53)
[2022-08-31] MEDS ORDERED: ACETAMINOPHEN 325 MG TAB PO PRN (18:53)
[2022-08-31] MEDS ORDERED: POLYETHYLENE (MIRALAX) 17 GM PACK PO PRN (18:53)
[2022-08-31] MEDS ORDERED: ONDANSETRON INJ 2 MG/ML 2 ML VIAL IV PRN (18:53)
[2022-08-31] MEDS ORDERED: ALUMINUM/MAGNESIUM SUSP 30 ML UDC PO PRN (18:53)
[2022-08-31] MEDS ORDERED: ENOXAPARIN INJ 40 MG/0.4 ML SYR SQ SCH (21:00)
[2022-08-31] MEDS: NSS + 20MEQ KCL 20 MEQ/1,000 ML BAG IV SCH (21:30)
[2022-08-31] MEDS: FAMOTIDINE 20 MG in SYRINGE 3 ML IV SCH (21:31)
[2022-08-31] MEDS: GABAPENTIN 300 MG CAP PO SCH (21:31)
[2022-08-31] MEDS: ziprasidone HCL 80 MG CAP PO SCH (21:31)
[2022-08-31] MEDS: BENZTROPINE MESYLATE 1 MG TAB PO SCH (21:32)
[2022-08-31] MEDS: TOPIRAMATE 100 MG TAB PO SCH (21:32)
[2022-08-31] MEDS: busPIRone 15 MG TAB PO SCH (21:32)
[2022-08-31] MEDS: PRAZOSIN HCL 1 MG CAP PO SCH (21:33)
[2022-09-01] MEDS: ACETAMINOPHEN 1,000 MG/100 ML VIAL IV PRN ×2 (02:09→15:47)
[2022-09-01] MEDS: metroNIDAZOLE 500 MG/100 ML BAG IV SCH ×2 (05:35→13:32)
[2022-09-01] MEDS ORDERED: CIPROFLOXACIN / D5W 400 MG/200 ML BAG IV SCH (06:00)
[2022-09-01] MEDS: NSS + 20MEQ KCL 20 MEQ/1,000 ML BAG IV SCH (07:31)
[2022-09-01 07:38] LABS: Hematocrit (blood only) 33.5 % (34.1-44.9); Hemoglobin 11.4 g/dl (12.0-16.0); Mean Corpuscular Hemoglobin 32.3 pg (25.0-34.0); Mean Corpuscular Volume 94.9 fL (80.0-100.0); Mean Platelet Volume 9.3 fL (9.4-12.3); Platelet Count 254 K/uL (130-400); RDW Coefficient of Variation 13.8 % (11.5-14.5); RDW Standard Deviation 47.7 fL (36.4-46.3); Red Blood Count 3.53 M/uL (3.93-5.22); White Blood Count 7.35 K/ul (4.8-10.8)
[2022-09-01 07:45] LABS: Albumin Globulin Ratio 1.2 (0.9-2); Albumin Level 2.9 gm/dl (3.4-5.0); BUN Creatinine Ratio 14.1 (10-20); Bilirubin,Total 0.5 mg/dl (0.2-1.0); Calcium 8.4 mg/dl (8.5-10.1); Creatinine Clr Calc Pharmacy 103.7 ml/min; Est GFR (African American) 118.9 ml/min; Est GFR (Non-African American) 102.6 ml/min; Globulin 2.4 gm/dl (2.5-4.0); Magnesium 1.7 mg/dl (1.7-2.4); Phosphorus 3.4 mg/dl (2.5-4.9); Potassium 2.7 mmol/L (3.5-5.1); Total Protein 5.3 gm/dl (6.0-8.3)
[2022-09-01] MEDS ORDERED: POTASSIUM CHLORIDE CRTAB 20 MEQ TABCR PO STA ×2 (08:00→19:26)
[2022-09-01] MEDS: BENZTROPINE MESYLATE 1 MG TAB PO SCH ×2 (08:22→20:06)
[2022-09-01] MEDS: DULoxetine HCL 30 MG CAP PO SCH (08:22)
[2022-09-01] MEDS: FAMOTIDINE 20 MG in SYRINGE 3 ML IV SCH ×2 (08:22→20:11)
[2022-09-01] MEDS: GABAPENTIN 300 MG CAP PO SCH ×3 (08:22→20:08)
[2022-09-01] MEDS: TOPIRAMATE 100 MG TAB PO SCH ×2 (08:22→20:10)
[2022-09-01] MEDS: busPIRone 15 MG TAB PO SCH ×3 (08:22→20:07)
[2022-09-01] MEDS ORDERED: FAMOTIDINE 20 MG TAB PO SCH (09:00)
[2022-09-01] MEDS: POTASSIUM CHLORIDE / WTR 10 MEQ/100 ML PLCT IV SCH ×4 (09:12→12:04)
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
[2022-09-01 11:10] LABS: Adenovirus F 40/41 PCR Not Detected (NotDetected); Astrovirus PCR Not Detected (NotDetected); Campylobacter PCR Not Detected (NotDetected); Cryptosporidium PCR Not Detected (NotDetected); Cyclospora cayetanensis PCR Not Detected (NotDetected); Entamoeba histolytica PCR Not Detected (NotDetected); Enteroaggregative E.coli(EAEC) Not Detected (NotDetected); Enteropathogenic E.coli (EPEC) Not Detected (NotDetected); Enterotoxigenic E.coli (ETEC) Not Detected (NotDetected); Giardia lamblia PCR Not Detected (NotDetected); Norovirus GI/GII PCR Not Detected (NotDetected); Plesiomonas shigelloides PCR Not Detected (NotDetected); Rotavirus A PCR Not Detected (NotDetected); Salmonella PCR Not Detected (NotDetected); Sapovirus PCR Not Detected (NotDetected); Shiga-like Toxin E.coli (STEC) Not Detected (NotDetected); Shigella/Enteroinvasive E.coli Not Detected (NotDetected); Vibrio cholerae PCR Not Detected (NotDetected); Vibrio species PCR Not Detected (NotDetected); Yersinia enterocolitica PCR Not Detected (NotDetected)
[2022-09-01] MEDS: DICYCLOMINE HCL 10 MG CAP PO PRN ×2 (11:28→19:24)
--- NOTE | 2022-09-01 12:45 | Surgery Progress Note ---
Date of Service September 01, 2022 Assessment & Plan (1) Abdominal pain: (2) Colitis: Plan 52-year-old female who presented to the emergency room with an increasing generalized abdominal pain as well as associated nausea, vomiting, diarrhea that has been present since May. She recently had an outpatient colonoscopy and upper endoscopy which showed evidence of diverticulosis. CT scan of abdomen and pelvis showing focal sigmoid colitis with concern for possible ischemic colitis versus infectious/inflammatory. Lactic acid was normal. 09/01/2022: No leukocytosis, afebrile Abdominal exam is relatively benign with some tenderness in the left lower quadrant however improving Stool studies negative Plan: No evidence of ischemic colitis on exam or laboratory findings. Her abdominal pain is slowly improving. No leukocytosis. Afebrile. No bloody stools. Stool cultures negative. No surgical intervention is required at this time. Continue current medical management Our services signing off please call with any questions or concerns. Discussed with Dr. Alston who agrees with above. Admission and Anticipated Discharge Date Admission Date: August 31, 2022 Subjective Feeling better today. Still having some nausea but no vomiting. Abdominal pain is about the same mostly in the left lower quadrant. Had 2 formed bowel movements today and passing gas. No blood in the stools Physical Exam Constitutional: WD/WN, vitals as above no acute distress and not ill appearing Neck: normal visual inspection and trachea midline Respiratory: normal respiratory effort; no respiratory distress Gastrointestinal (Abdomen): Inspection/Auscultation: abdomen normal to inspection and normal bowel sounds; abdomen not distended Percussi on/Palpation: + abdomen tender (Mildly tender in the left lower quadrant however this is significantly prov) and abdomen soft; no guarding, abdomen not rigid and abdomen not firm Skin: no rashes, warm and dry Psychiatric: Orientation: alert and oriented x 3 Results & Data ([facility]) Vital Signs (Past 12 Hours) Vital Signs Temp Pulse Pulse Resp BP Pulse Ox O2 Del Method 09/01/22 10:56 36.5 C 67 18 121/85 98 Room Air 09/01/22 07:50 Room Air 09/01/22 07:56 36.5 C 62 18 117/81 96 Room Air 09/01/22 07:15 62 09/01/22 03:43 36.5 C 61 16 94/58 L 95 Room Air Laboratory Results 09/01/22 09/01/22 09/01/22 Range/Units 11:22 09:32 09:32 WBC (4.8-10.8) K/ul RBC (3.93-5.22) M/uL Hgb (12.0-16.0) g/dl Hct (34.1-44.9) % MCV (80.0-100.0) fL MCH (25.0-34.0) pg MCHC (32.0-36.0) g/dL RDW Std Deviation (36.4-46.3) fL RDW Coeff of Trey (11.5-14.5) % Plt Count (130-400) K/uL MPV (9.4-12.3) fL Immature Gran % (Auto) % Neut % (Auto) % Lymph % (Auto) % [place] % (Auto) % Eos % (Auto) % Baso % (Auto) % Neut # (Auto) (1.4-6.5) K/uL Lymph # (Auto) (1.2-3.4) K/uL [place] # (Auto) (0.24-0.82) K/uL Eos # (Auto) (0-0.50) K/uL Baso # (Auto) (0-0.2) K/uL Immature Gran # (Auto) (0.00-0.02) K/uL ESR (0-30) mm/hr Sodium (136-145) mmol/L Potassium (3.5-5.1) mmol/L Chloride (98-107) mmol/L Carbon Dioxide (21-32) mmol/L Anion Gap (3-11) BUN (6-23) mg/dl Creatinine (0.6-1.2) mg/dl Est Cr Clr Drug Dosing ml/min Est GFR ( Amer) ml/min Est GFR (Non-Af Amer) ml/min BUN/Creatinine Ratio (10-20) Glucose (70-99(Fasting)) mg/dl Lactate (0.4-2.0) mmol/L Calcium (8.5-10.1) mg/dl Phosphorus (2.5-4.9) mg/dl Magnesium (1.7-2.4) mg/dl Total Bilirubin (0.2-1.0) mg/dl AST (13-39) U/L ALT (7-52) U/L Alkaline Phosphatase (34-104) U/L Total Creatine Kinase (26-192) U/L Troponin I High Sens (0-14) pg/ml Total Protein (6.0-8.3) gm/dl Albumin (3.4-5.0) gm/dl Globulin (2.5-4.0) gm/dl Albumin/Globulin Ratio (0.9-2) Amylase (25-115) U/L Lipase (11-82) U/L Urine Color Urine Appearance (Clear) Urine pH (4.5-7.5) Ur Specific [place] (1.000-1.030) Urine Protein (Negative) Urine Glucose (UA) (Negative) Urine Ketones (Negative) Urine Blood (Negative) Urine Nitrite (Negative) Urine Bilirubin (Negative) Urine Urobilinogen (Negative) Ur Leukocyte Esterase (Negative) Urine WBC (Auto) (0-5) /hpf Urine RBC (Auto) (0-4) /hpf U Hyaline Cast (Auto) (0-5) /lpf U Epithel Cells (Auto) (0-5) /lpf Urine Bacteria (Auto) (Negative) Ur Renal Epithelial Cell Urine Mucus (None Prsent) Stool Occult Bld Scrn (Negative) Stl C. cayetanensis PCR Not Detected (NotDetected) Stool Rotavirus A PCR Not Detected (NotDetected) Stl Adenov F 40/41 PCR Not Detected (NotDetected) Stool Astrovirus (PCR) Not Detected (NotDetected) Stool Campylobacter PCR Not Detected (NotDetected) Stl C. diff Tox B Gene Pending Stool Cryptosporidium PCR Not Detected (NotDetected) Stl E.coli Shiga Tox PCR Not Detected (NotDetected) Stl Enterotoxigenic E PCR Not Detected (NotDetected) Stool EPEC (PCR) Not Detected (NotDetected) Stool EAEC (PCR) Not Detected (NotDetected) Stl E. histolytica PCR Not Detected (NotDetected) Stool Giardia Lamblia PCR Not Detected (NotDetected) Stool Salmonella PCR Not Detected (NotDetected) Stool Sapovirus (PCR) Not Detected (NotDetected) Stl P. shigelloides PCR Not Detected (NotDetected) Stl Shigella/EIEC PCR Not Detected (NotDetected) St Y.enterocolitica PCR Not Detected (NotDetected) Stool Vibrio (PCR) Not Detected (NotDetected) Stl Vibrio cholerae PCR Not Detected (NotDetected) Stl Norovirus GI/GII PCR Not Detected (NotDetected) Ur Butalbital Confirm Pending Urine Opiates Screen Pending U Codeine Confrm GC/MS Pending Ur Morphine (GC/MS) Pending Ur Hydrocodone (GC/MS) Pending U Norhydrocodone Conf Pending Ur Oxycodone Screen Pending U Noroxycodone Confirm Pending Ur Oxycodone GC/MS Pending U Oxymorphone GC/MS Pending EDDP Confirm Pending Ur Methadone, Qual Pending Ur Methadone Pending Ur Hydromorphone (GC/MS) Pending Urine Barbiturates Pending Ur Phencyclidine Scrn Pending Urine PCP Confirm Pending Ur Amphetamines Screen Pending U Amphetamines Confirm Pending Methamphetamine GC/MS Pending Ur Amobarbital GC/MS Pending U Pentobarbital GC/MS Pending U Phenobarbital GC/MS Pending U Secobarbital GC/MS Pending U [id number]-[id number] GC/MS Pending U Benzodiazepines Scrn Pending U 7-Aminoclonazepam Screen Pending Ur Nordiazepam GC/MS Pending U OH-ethylfluraz GC/MS Pending U Lorazepam Cnf GC/MS Pending U Oxazepam Confm GC/MS Pending Ur Temazepam Cnf GC/MS Pending U a-Hydroxytriaz GC/MS Pending U [id number] Pending Urine Cocaine Pending U Cocaine Metab Confirm Pending Tetrahydrocannabinol Pending U Marijuana (THC) Screen Pending Drug Screen Comment Pending SARS-CoV-2 (PCR) (Negative) Influenza Type A (PCR) (Neg) Influenza Type B (PCR) (Neg) RSV (RT-PCR) (Neg) Reference Lab Pending 09/01/22 09/01/22 09/01/22 Range/Units 06:53 06:53 06:53 WBC 7.35 (4.8-10.8) K/ul RBC 3.53 L (3.93-5.22) M/uL Hgb 11.4 L D (12.0-16.0) g/dl Hct 33.5 L (34.1-44.9) % MCV 94.9 (80.0-100.0) fL MCH 32.3 (25.0-34.0) pg MCHC 34.0 (32.0-36.0) g/dL RDW Std Deviation 47.7 H (36.4-46.3) fL RDW Coeff of Trey 13.8 (11.5-14.5) % Plt Count 254 (130-400) K/uL MPV 9.3 L (9.4-12.3) fL Immature Gran % (Auto) % Neut % (Auto) % Lymph % (Auto) % [place] % (Auto) % Eos % (Auto) % Baso % (Auto) % Neut # (Auto) (1.4-6.5) K/uL Lymph # (Auto) (1.2-3.4) K/uL [place] # (Auto) (0.24-0.82) K/uL Eos # (Auto) (0-0.50) K/uL Baso # (Auto) (0-0.2) K/uL Immature Gran # (Auto) (0.00-0.02) K/uL ESR 8 (0-30) mm/hr Sodium 144 (136-145) mmol/L Potassium 2.7 L (3.5-5.1) mmol/L Chloride 110 H (98-107) mmol/L Carbon Dioxide 28 (21-32) mmol/L Anion Gap 6 (3-11) BUN 9 (6-23) mg/dl Creatinine 0.64 (0.6-1.2) mg/dl Est Cr Clr Drug Dosing 103.7 ml/min Est GFR ( Amer) 118.9 ml/min Est GFR (Non-Af Amer) 102.6 ml/min BUN/Creatinine Ratio 14.1 (10-20) Glucose 88 (70-99(Fasting)) mg/dl Lactate (0.4-2.0) mmol/L Calcium 8.4 L (8.5-10.1) mg/dl Phosphorus 3.4 (2.5-4.9) mg/dl Magnesium 1.7 (1.7-2.4) mg/dl Total Bilirubin 0.5 (0.2-1.0) mg/dl AST 13 (13-39) U/L ALT 11 (7-52) U/L Alkaline Phosphatase 53 (34-104) U/L Total Creatine Kinase (26-192) U/L Troponin I High Sens (0-14) pg/ml Total Protein 5.3 L D (6.0-8.3) gm/dl Albumin 2.9 L (3.4-5.0) gm/dl Globulin 2.4 L (2.5-4.0) gm/dl Albumin/Globulin Ratio 1.2 (0.9-2) Amylase (25-115) U/L Lipase (11-82) U/L Urine Color Urine Appearance (Clear) Urine pH (4.5-7.5) Ur Specific [place] (1.000-1.030) Urine Protein (Negative) Urine Glucose (UA) (Negative) Urine Ketones (Negative) Urine Blood (Negative) Urine Nitrite (Negative) Urine Bilirubin (Negative) Urine Urobilinogen (Negative) Ur Leukocyte Esterase (Negative) Urine WBC (Auto) (0-5) /hpf Urine RBC (Auto) (0-4) /hpf U Hyaline Cast (Auto) (0-5) /lpf U Epithel Cells (Auto) (0-5) /lpf Urine Bacteria (Auto) (Negative) Ur Renal Epithelial Cell Urine Mucus (None Prsent) Stool Occult Bld Scrn (Negative) Stl C. cayetanensis PCR (NotDetected) Stool Rotavirus A PCR (NotDetected) Stl Adenov F 40/41 PCR (NotDetected) Stool Astrovirus (PCR) (NotDetected) Stool Campylobacter PCR (NotDetected) Stl C. diff Tox B Gene Stool Cryptosporidium PCR (NotDetected) Stl E.coli Shiga Tox PCR (NotDetected) Stl Enterotoxigenic E PCR (NotDetected) Stool EPEC (PCR) (NotDetected) Stool EAEC (PCR) (NotDetected) Stl E. histolytica PCR (NotDetected) Stool Giardia Lamblia PCR (NotDetected) Stool Salmonella PCR (NotDetected) Stool Sapovirus (PCR) (NotDetected) Stl P. shigelloides PCR (NotDetected) Stl Shigella/EIEC PCR (NotDetected) St Y.enterocolitica PCR (NotDetected) Stool Vibrio (PCR) (NotDetected) Stl Vibrio cholerae PCR (NotDetected) Stl Norovirus GI/GII PCR (NotDetected) Ur Butalbital Confirm Urine Opiates Screen U Codeine Confrm GC/MS Ur Morphine (GC/MS) Ur Hydrocodone (GC/MS) U Norhydrocodone Conf Ur Oxycodone Screen U Noroxycodone Confirm Ur Oxycodone GC/MS U Oxymorphone GC/MS EDDP Confirm Ur Methadone, Qual Ur Methadone Ur Hydromorphone (GC/MS) Urine Barbiturates Ur Phencyclidine Scrn Urine PCP Confirm Ur Amphetamines Screen U Amphetamines Confirm Methamphetamine GC/MS Ur Amobarbital GC/MS U Pentobarbital GC/MS U Phenobarbital GC/MS U Secobarbital GC/MS U [id number]-Iufkwisai GC/MS U Benzodiazepines Scrn U 7-Aminoclonazepam Screen Ur Nordiazepam GC/MS U OH-ethylfluraz GC/MS U Lorazepam Cnf GC/MS U Oxazepam Confm GC/MS Ur Temazepam Cnf GC/MS U a-Hydroxytriaz GC/MS U p-[id number]-Riudklghq Urine Cocaine U Cocaine Metab Confirm Tetrahydrocannabinol U Marijuana (THC) Screen Drug Screen Comment SARS-CoV-2 (PCR) (Negative) Influenza Type A (PCR) (Neg) Influenza Type B (PCR) (Neg) RSV (RT-PCR) (Neg) Reference Lab 08/31/22 08/31/22 08/31/22 Range/Units 23:05 14:19 14:19 WBC (4.8-10.8) K/ul RBC (3.93-5.22) M/uL Hgb (12.0-16.0) g/dl Hct (34.1-44.9) % MCV (80.0-100.0) fL MCH (25.0-34.0) pg MCHC (32.0-36.0) g/dL RDW Std Deviation (36.4-46.3) fL RDW Coeff of Trey (11.5-14.5) % Plt Count (130-400) K/uL MPV (9.4-12.3) fL Immature Gran % (Auto) % Neut % (Auto) % Lymph % (Auto) % [place] % (Auto) % Eos % (Auto) % Baso % (Auto) % Neut # (Auto) (1.4-6.5) K/uL Lymph # (Auto) (1.2-3.4) K/uL [place] # (Auto) (0.24-0.82) K/uL Eos # (Auto) (0-0.50) K/uL Baso # (Auto) (0-0.2) K/uL Immature Gran # (Auto) (0.00-0.02) K/uL ESR (0-30) mm/hr Sodium (136-145) mmol/L Potassium (3.5-5.1) mmol/L Chloride (98-107) mmol/L Carbon Dioxide (21-32) mmol/L Anion Gap (3-11) BUN (6-23) mg/dl Creatinine (0.6-1.2) mg/dl Est Cr Clr Drug Dosing ml/min Est GFR ( Amer) ml/min Est GFR (Non-Af Amer) ml/min BUN/Creatinine Ratio (10-20) Glucose (70-99(Fasting)) mg/dl Lactate 0.9 (0.4-2.0) mmol/L Calcium (8.5-10.1) mg/dl Phosphorus (2.5-4.9) mg/dl Magnesium (1.7-2.4) mg/dl Total Bilirubin (0.2-1.0) mg/dl AST (13-39) U/L ALT (7-52) U/L Alkaline Phosphatase (34-104) U/L Total Creatine Kinase (26-192) U/L Troponin I High Sens (0-14) pg/ml Total Protein (6.0-8.3) gm/dl Albumin (3.4-5.0) gm/dl Globulin (2.5-4.0) gm/dl Albumin/Globulin Ratio (0.9-2) Amylase (25-115) U/L Lipase (11-82) U/L Urine Color Urine Appearance (Clear) Urine pH (4.5-7.5) Ur Specific [place] (1.000-1.030) Urine Protein (Negative) Urine Glucose (UA) (Negative) Urine Ketones (Negative) Urine Blood (Negative) Urine Nitrite (Negative) Urine Bilirubin (Negative) Urine Urobilinogen (Negative) Ur Leukocyte Esterase (Negative) Urine WBC (Auto) (0-5) /hpf Urine RBC (Auto) (0-4) /hpf U Hyaline Cast (Auto) (0-5) /lpf U Epithel Cells (Auto) (0-5) /lpf Urine Bacteria (Auto) (Negative) Ur Renal Epithelial Cell Urine Mucus (None Prsent) Stool Occult Bld Scrn Negative (Negative) Stl C. cayetanensis PCR (NotDetected) Stool Rotavirus A PCR (NotDetected) Stl Adenov F 40/41 PCR (NotDetected) Stool Astrovirus (PCR) (NotDetected) Stool Campylobacter PCR (NotDetected) Stl C. diff Tox B Gene Stool Cryptosporidium PCR (NotDetected) Stl E.coli Shiga Tox PCR (NotDetected) Stl Enterotoxigenic E PCR (NotDetected) Stool EPEC (PCR) (NotDetected) Stool EAEC (PCR) (NotDetected) Stl E. histolytica PCR (NotDetected) Stool Giardia Lamblia PCR (NotDetected) Stool Salmonella PCR (NotDetected) Stool Sapovirus (PCR) (NotDetected) Stl P. shigelloides PCR (NotDetected) Stl Shigella/EIEC PCR (NotDetected) St Y.enterocolitica PCR (NotDetected) Stool Vibrio (PCR) (NotDetected) Stl Vibrio cholerae PCR (NotDetected) Stl Norovirus GI/GII PCR (NotDetected) Ur Butalbital Confirm Urine Opiates Screen U Codeine Confrm GC/MS Ur Morphine (GC/MS) Ur Hydrocodone (GC/MS) U Norhydrocodone Conf Ur Oxycodone Screen U Noroxycodone Confirm Ur Oxycodone GC/MS U Oxymorphone GC/MS EDDP Confirm Ur Methadone, Qual Ur Methadone Ur Hydromorphone (GC/MS) Urine Barbiturates Ur Phencyclidine Scrn Urine PCP Confirm Ur Amphetamines Screen U Amphetamines Confirm Methamphetamine GC/MS Ur Amobarbital GC/MS U Pentobarbital GC/MS U Phenobarbital GC/MS U Secobarbital GC/MS U j-UD-Olordsmnh GC/MS U Benzodiazepines Scrn U 7-Aminoclonazepam Screen Ur Nordiazepam GC/MS U OH-ethylfluraz GC/MS U Lorazepam Cnf GC/MS U Oxazepam Confm GC/MS Ur Temazepam Cnf GC/MS U a-Hydroxytriaz GC/MS U [id number]-[id number] Urine Cocaine U Cocaine Metab Confirm Tetrahydrocannabinol U Marijuana (THC) Screen Drug Screen Comment SARS-CoV-2 (PCR) NEGATIVE (Negative) Influenza Type A (PCR) Negative (Neg) Influenza Type B (PCR) Negative (Neg) RSV (RT-PCR) Negative (Neg) Reference Lab 08/31/22 08/31/22 08/31/22 Range/Units 13:46 13:46 13:46 WBC (4.8-10.8) K/ul RBC (3.93-5.22) M/uL Hgb (12.0-16.0) g/dl Hct (34.1-44.9) % MCV (80.0-100.0) fL MCH (25.0-34.0) pg MCHC (32.0-36.0) g/dL RDW Std Deviation (36.4-46.3) fL RDW Coeff of Trey (11.5-14.5) % Plt Count (130-400) K/uL MPV (9.4-12.3) fL Immature Gran % (Auto) % Neut % (Auto) % Lymph % (Auto) % [place] % (Auto) % Eos % (Auto) % Baso % (Auto) % Neut # (Auto) (1.4-6.5) K/uL Lymph # (Auto) (1.2-3.4) K/uL [place] # (Auto) (0.24-0.82) K/uL Eos # (Auto) (0-0.50) K/uL Baso # (Auto) (0-0.2) K/uL Immature Gran # (Auto) (0.00-0.02) K/uL ESR (0-30) mm/hr Sodium 142 (136-145) mmol/L Potassium 2.6 L (3.5-5.1) mmol/L Chloride 102 (98-107) mmol/L Carbon Dioxide 30 (21-32) mmol/L Anion Gap 10 (3-11) BUN 11 (6-23) mg/dl Creatinine 0.85 (0.6-1.2) mg/dl Est Cr Clr Drug Dosing 78.1 ml/min Est GFR ( Amer) 91.3 ml/min Est GFR (Non-Af Amer) 78.8 ml/min BUN/Creatinine Ratio 12.9 (10-20) Glucose 99 (70-99(Fasting)) mg/dl Lactate (0.4-2.0) mmol/L Calcium 10.2 H (8.5-10.1) mg/dl Phosphorus (2.5-4.9) mg/dl Magnesium 1.9 (1.7-2.4) mg/dl Total Bilirubin 0.8 (0.2-1.0) mg/dl AST 18 (13-39) U/L ALT 16 (7-52) U/L Alkaline Phosphatase 73 (34-104) U/L Total Creatine Kinase 140 (26-192) U/L Troponin I High Sens 8.5 (0-14) pg/ml Total Protein 7.9 (6.0-8.3) gm/dl Albumin 4.3 (3.4-5.0) gm/dl Globulin 3.6 (2.5-4.0) gm/dl Albumin/Globulin Ratio 1.2 (0.9-2) Amylase 17 L (25-115) U/L Lipase 4 L (11-82) U/L Urine Color Dark Yellow Urine Appearance Cloudy A (Clear) Urine pH 6.0 (4.5-7.5) Ur Specific [place] 1.017 (1.000-1.030) Urine Protein 1+ H (Negative) Urine Glucose (UA) Negative (Negative) Urine Ketones 1+ H (Negative) Urine Blood Trace H (Negative) Urine Nitrite Negative (Negative) Urine Bilirubin Negative (Negative) Urine Urobilinogen Negative (Negative) Ur Leukocyte Esterase 1+ H (Negative) Urine WBC (Auto) 10-30 H (0-5) /hpf Urine RBC (Auto) 5-10 H (0-4) /hpf U Hyaline Cast (Auto) 1-5 (0-5) /lpf U Epithel Cells (Auto) >30 H (0-5) /lpf Urine Bacteria (Auto) Negative (Negative) Ur Renal Epithelial Cell Not Reportable Urine Mucus Present A (None Prsent) Stool Occult Bld Scrn (Negative) Stl C. cayetanensis PCR (NotDetected) Stool Rotavirus A PCR (NotDetected) Stl Adenov F 40/ PCR (NotDetected) Stool Astrovirus (PCR) (NotDetected) Stool Campylobacter PCR (NotDetected) Stl C. diff Tox B Gene Stool Cryptosporidium PCR (NotDetected) Stl E.coli Shiga Tox PCR (NotDetected) Stl Enterotoxigenic E PCR (NotDetected) Stool EPEC (PCR) (NotDetected) Stool EAEC (PCR) (NotDetected) Stl E. histolytica PCR (NotDetected) Stool Giardia Lamblia PCR (NotDetected) Stool Salmonella PCR (NotDetected) Stool Sapovirus (PCR) (NotDetected) Stl P. shigelloides PCR (NotDetected) Stl Shigella/EIEC PCR (NotDetected) St Y.enterocolitica PCR (NotDetected) Stool Vibrio (PCR) (NotDetected) Stl Vibrio cholerae PCR (NotDetected) Stl Norovirus GI/GII PCR (NotDetected) Ur Butalbital Confirm Urine Opiates Screen U Codeine Confrm GC/MS Ur Morphine (GC/MS) Ur Hydrocodone (GC/MS) U Norhydrocodone Conf Ur Oxycodone Screen U Noroxycodone Confirm Ur Oxycodone GC/MS U Oxymorphone GC/MS EDDP Confirm Ur Methadone, Qual Ur Methadone Ur Hydromorphone (GC/MS) Urine Barbiturates Ur Phencyclidine Scrn Urine PCP Confirm Ur Amphetamines Screen U Amphetamines Confirm Methamphetamine GC/MS Ur Amobarbital GC/MS U Pentobarbital GC/MS U Phenobarbital GC/MS U Secobarbital GC/MS U j-JE-Zfezzslip GC/MS U Benzodiazepines Scrn U 7-Aminoclonazepam Screen Ur Nordiazepam GC/MS U OH-ethylfluraz GC/MS U Lorazepam Cnf GC/MS U Oxazepam Confm GC/MS Ur Temazepam Cnf GC/MS U a-Hydroxytriaz GC/MS U p-QB-Gotofedqb Urine Cocaine U Cocaine Metab Confirm Tetrahydrocannabinol U Marijuana (THC) Screen Drug Screen Comment SARS-CoV-2 (PCR) (Negative) Influenza Type A (PCR) (Neg) Influenza Type B (PCR) (Neg) RSV (RT-PCR) (Neg) Reference Lab 08/31/22 Range/Units 13:46 WBC 11.96 H (4.8-10.8) K/ul RBC 4.76 (3.93-5.22) M/uL Hgb 15.2 (12.0-16.0) g/dl Hct 44.9 (34.1-44.9) % MCV 94.3 (80.0-100.0) fL MCH 31.9 (25.0-34.0) pg MCHC 33.9 (32.0-36.0) g/dL RDW Std Deviation 47.4 H (36.4-46.3) fL RDW Coeff of Trey 13.5 (11.5-14.5) % Plt Count 402 H (130-400) K/uL MPV 9.4 (9.4-12.3) fL Immature Gran % (Auto) 0.3 % Neut % (Auto) 56.8 % Lymph % (Auto) 30.5 % [place] % (Auto) 6.8 % Eos % (Auto) 5.2 % Baso % (Auto) 0.4 % Neut # (Auto) 6.80 H (1.4-6.5) K/uL Lymph # (Auto) 3.65 H (1.2-3.4) K/uL [place] # (Auto) 0.81 (0.24-0.82) K/uL Eos # (Auto) 0.62 H (0-0.50) K/uL Baso # (Auto) 0.05 (0-0.2) K/uL Immature Gran # (Auto) 0.03 H (0.00-0.02) K/uL ESR (0-30) mm/hr Sodium (136-145) mmol/L Potassium (3.5-5.1) mmol/L Chloride (98-107) mmol/L Carbon Dioxide (21-32) mmol/L Anion Gap (3-11) BUN (6-23) mg/dl Creatinine (0.6-1.2) mg/dl Est Cr Clr Drug Dosing ml/min Est GFR ( Amer) ml/min Est GFR (Non-Af Amer) ml/min BUN/Creatinine Ratio (10-20) Glucose (70-99(Fasting)) mg/dl Lactate (0.4-2.0) mmol/L Calcium (8.5-10.1) mg/dl Phosphorus (2.5-4.9) mg/dl Magnesium (1.7-2.4) mg/dl Total Bilirubin (0.2-1.0) mg/dl AST (13-39) U/L ALT (7-52) U/L Alkaline Phosphatase (34-104) U/L Total Creatine Kinase (26-192) U/L Troponin I High Sens (0-14) pg/ml Total Protein (6.0-8.3) gm/dl Albumin (3.4-5.0) gm/dl Globulin (2.5-4.0) gm/dl Albumin/Globulin Ratio (0.9-2) Amylase (25-115) U/L Lipase (11-82) U/L Urine Color Urine Appearance (Clear) Urine pH (4.5-7.5) Ur Specific [place] (1.000-1.030) Urine Protein (Negative) Urine Glucose (UA) (Negative) Urine Ketones (Negative) Urine Blood (Negative) Urine Nitrite (Negative) Urine Bilirubin (Negative) Urine Urobilinogen (Negative) Ur Leukocyte Esterase (Negative) Urine WBC (Auto) (0-5) /hpf Urine RBC (Auto) (0-4) /hpf U Hyaline Cast (Auto) (0-5) /lpf U Epithel Cells (Auto) (0-5) /lpf Urine Bacteria (Auto) (Negative) Ur Renal Epithelial Cell Urine Mucus (None Prsent) Stool Occult Bld Scrn (Negative) Stl C. cayetanensis PCR (NotDetected) Stool Rotavirus A PCR (NotDetected) Stl Adenov F 40/41 PCR (NotDetected) Stool Astrovirus (PCR) (NotDetected) Stool Campylobacter PCR (NotDetected) Stl C. diff Tox B Gene Stool Cryptosporidium PCR (NotDetected) Stl E.coli Shiga Tox PCR (NotDetected) Stl Enterotoxigenic E PCR (NotDetected) Stool EPEC (PCR) (NotDetected) Stool EAEC (PCR) (NotDetected) Stl E. histolytica PCR (NotDetected) Stool Giardia Lamblia PCR (NotDetected) Stool Salmonella PCR (NotDetected) Stool Sapovirus (PCR) (NotDetected) Stl P. shigelloides PCR (NotDetected) Stl Shigella/EIEC PCR (NotDetected) St Y.enterocolitica PCR (NotDetected) Stool Vibrio (PCR) (NotDetected) Stl Vibrio cholerae PCR (NotDetected) Stl Norovirus GI/GII PCR (NotDetected) Ur Butalbital Confirm Urine Opiates Screen U Codeine Confrm GC/MS Ur Morphine (GC/MS) Ur Hydrocodone (GC/MS) U Norhydrocodone Conf Ur Oxycodone Screen U Noroxycodone Confirm Ur Oxycodone GC/MS U Oxymorphone GC/MS EDDP Confirm Ur Methadone, Qual Ur Methadone Ur Hydromorphone (GC/MS) Urine Barbiturates Ur Phencyclidine Scrn Urine PCP Confirm Ur Amphetamines Screen U Amphetamines Confirm Methamphetamine GC/MS Ur Amobarbital GC/MS U Pentobarbital GC/MS U Phenobarbital GC/MS U Secobarbital GC/MS U b-[id number]-Kwdvvital GC/MS U Benzodiazepines Scrn U 7-Aminoclonazepam Screen Ur Nordiazepam GC/MS U OH-ethylfluraz GC/MS U Lorazepam Cnf GC/MS U Oxazepam Confm GC/MS Ur Temazepam Cnf GC/MS U a-Hydroxytriaz GC/MS U w-FU-Berdimsor Urine Cocaine U Cocaine Metab Confirm Tetrahydrocannabinol U Marijuana (THC) Screen Drug Screen Comment SARS-CoV-2 (PCR) (Negative) Influenza Type A (PCR) (Neg) Influenza Type B (PCR) (Neg) RSV (RT-PCR) (Neg) Reference Lab
--- NOTE | 2022-09-01 14:19 | Hospitalist Progress Note ---
Date of Service September 01, 2022 Assessment & Plan (1) Acute ischemic colitis: (2) Abdominal pain: (3) Nausea & vomiting: (4) Acute hypokalemia: (5) Bipolar disorder: (6) Hepatitis C: Plan Abdominal pain: Nausea and vomiting: ongoing symptoms for past few months since May 20: Colonoscopy indicated internal hemorrhoids and diverticulitis 08/24: Endoscopy showed gastritis Abdominal CT: indicated worsening colitis possible ischemic colitis GI and General Surgery consulted given IV NSS and Cipro, Flagyl Stool studies, including C diff: Negative less Likely Ischemic Colitis given benign exam and absence of bloody diarrhea per GI No intervention for now per Gen Surg GI recommending to d/c antibiotics, manage symptoms with PRN Dicyclomine 10mg BID PRN for cramping/abdominal pain advance diet monitor Hypokalemia: likely from GI losses K 2.7 replaced with PO and IV k repeat K this afternoon Bipolar disorder: Anxiety and depression: Takes buspirone, benztropine, and duloxetine Takes Ziprasidone for bipolar disorder HTN: stable Takes Prazosin Peripheral neuropathy: Takes gabapentin and topiramate Hepatitis C: H/O IV drug use: (crushed and injected Soboxone, 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 Platt CODE STATUS: Full code VTE prophylaxis: Lovenox SQ Disposition: anticipate d/c home tomorrow when medically stable Admission and Anticipated Discharge Date Admission Date: August 31, 2022 Subjective ff up for nausea/vomiting, diarrhea, possible ischemic colitis, etc seen with REINALDO Ruffin at bedside throughout whole encounter seen resting in bed, comfortable states abdominal pain is better than yesterday, mostly on the Left quadrants still had nausea this morning no chest pain, dyspnea, palpitations, dizziness no other symptoms Review of Systems Review of Systems: all noted and negative except for above Physical Exam Physical Exam: General- oriented x 3, not in distress, speaks in sentences with no effort or accessory muscle use Eyes- anicteric Neck- no JVD Lungs- clear breath sounds bilaterally, no crackles/wheezing Heart- normal rate, regular rhythm; no murmurs Abdomen- normal bowel sounds, nondistended, soft, mild LUQ tenderness Extremities- no pretibial edema, no calf tenderness Neuro- alert, oriented x 3; no gross focal neurologic deficits Skin- warm & dry Results & Data Results & Data ([facility]) Vital Signs (Past 12 Hours) Vital Signs Temp Pulse Pulse Resp BP Pulse Ox O2 Del Method 09/01/22 10:56 36.5 C 67 18 121/85 98 Room Air 09/01/22 07:50 Room Air 09/01/22 07:56 36.5 C 62 18 117/81 96 Room Air 09/01/22 07:15 62 09/01/22 03:43 36.5 C 61 16 94/58 L 95 Room Air all noted and reviewed including below
[2022-09-01] MEDS: ENOXAPARIN INJ 40 MG/0.4 ML SYR SQ SCH (20:07)
[2022-09-01] MEDS: PRAZOSIN HCL 1 MG CAP PO SCH (20:08)
[2022-09-01] MEDS: ziprasidone HCL 80 MG CAP PO SCH (20:10)
--- NOTE | 2022-09-02 06:28 | Electrocardiogram Report ---
Test Reason : Blood Pressure : / mmHG Vent. Rate : 089 BPM Atrial Rate : 089 BPM P-R Int : 124 ms QRS Dur : 088 ms QT Int : 396 ms P-R-T Axes : 052 095 038 degrees QTc Int : 481 ms Poor data quality, interpretation may be adversely affected Normal sinus rhythm Possible Left atrial enlargement Rightward axis Borderline ECG When compared with ECG of 25-AUG-2022 18:54, No significant change was found Confirmed by Arslan Gracia ([id number]) on 09/02/2022 6:28:12 AM Referred By: REFERRED SELF Confirmed By:Arslan Gracia
[2022-09-02 06:44] LABS: Basophils # (auto) 0.04 K/uL (0-0.2); Basophils % (auto) 0.5 %; Eosinophils # (auto) 0.39 K/uL (0-0.50); Eosinophils % (auto) 4.6 %; Hematocrit (blood only) 34.4 % (34.1-44.9); Hemoglobin 11.5 g/dl (12.0-16.0); Immature Granulocytes # (auto) 0.03 K/uL (0.00-0.02); Immature Granulocytes % (auto) 0.4 %; Lymphocytes # (auto) 2.16 K/uL (1.2-3.4); Lymphocytes % (auto) 25.7 %; Mean Corpuscular Hemoglobin 32.5 pg (25.0-34.0); Mean Corpuscular Hgb Conc 33.4 g/dL (32.0-36.0); Mean Corpuscular Volume 97.2 fL (80.0-100.0); Mean Platelet Volume 9.6 fL (9.4-12.3); Monocytes # (auto) 0.66 K/uL (0.24-0.82); Monocytes % (auto) 7.9 %; Neutrophils # (auto) 5.12 K/uL (1.4-6.5); Neutrophils % (auto) 60.9 %; Platelet Count 253 K/uL (130-400); RDW Coefficient of Variation 13.8 % (11.5-14.5); RDW Standard Deviation 49.4 fL (36.4-46.3); Red Blood Count 3.54 M/uL (3.93-5.22)
--- NOTE | 2022-09-02 06:48 | Electrocardiogram Report ---
Test Reason : Blood Pressure : / mmHG Vent. Rate : 060 BPM Atrial Rate : 060 BPM P-R Int : 130 ms QRS Dur : 088 ms QT Int : 486 ms P-R-T Axes : 061 091 062 degrees QTc Int : 486 ms Normal sinus rhythm with sinus arrhythmia Rightward axis Prolonged QT Abnormal ECG When compared with ECG of 31-AUG-2022 14:13, Vent. rate has decreased BY 29 BPM Confirmed by Arslan Gracia ([id number]) on 09/02/2022 6:48:17 AM Referred By: REFERRED SELF Confirmed By:Arslan Gracia
[2022-09-02 07:06] LABS: BUN Creatinine Ratio 10.1 (10-20); Calcium 8.9 mg/dl (8.5-10.1); Creatinine Clr Calc Pharmacy 103.9 ml/min; Est GFR (Non-African American) 100.1 ml/min; Magnesium 1.7 mg/dl (1.7-2.4); Potassium 3.4 mmol/L (3.5-5.1)
[2022-09-02] MEDS: BENZTROPINE MESYLATE 1 MG TAB PO SCH ×2 (07:52→19:55)
[2022-09-02] MEDS: TOPIRAMATE 100 MG TAB PO SCH ×2 (07:52→19:58)
[2022-09-02] MEDS: DULoxetine HCL 30 MG CAP PO SCH (07:52)
[2022-09-02] MEDS: busPIRone 15 MG TAB PO SCH ×3 (07:53→19:55)
[2022-09-02] MEDS: GABAPENTIN 300 MG CAP PO SCH ×3 (07:53→19:57)
[2022-09-02] MEDS: FAMOTIDINE 20 MG in SYRINGE 3 ML IV SCH ×2 (07:55→20:11)
[2022-09-02] MEDS ORDERED: POTASSIUM CHLORIDE CRTAB 20 MEQ TABCR PO ONE (08:29)
--- NOTE | 2022-09-02 10:45 | Hospitalist Progress Note ---
Date of Service September 02, 2022 Assessment & Plan (1) Abdominal pain: (2) Nausea & vomiting: (3) Acute hypokalemia: (4) Bipolar disorder: (5) Hepatitis C: Plan Abdominal pain: Nausea and vomiting: ongoing symptoms for past few months since May 20: Colonoscopy indicated internal hemorrhoids and diverticulitis 08/24: Endoscopy showed gastritis Abdominal CT: indicated worsening colitis possible ischemic colitis GI and General Surgery consulted given IV NSS and Cipro, Flagyl Stool studies, including C diff: Negative less Likely Ischemic Colitis given benign exam and absence of bloody diarrhea per GI No intervention for now per Gen Surg GI recommending to d/c antibiotics, manage symptoms with PRN Dicyclomine 10mg BID PRN for cramping/abdominal pain advance diet, added carafate as bentyl has not provided relief so far. Bipolar disorder: Anxiety and depression: chronic, stable. Takes buspirone, benztropine, and duloxetine Takes Ziprasidone for bipolar disorder HTN: chronic, stable. Cont current management. Peripheral neuropathy: chronic, stable. Takes gabapentin and topiramate Hepatitis C: H/O IV drug use: (crushed and injected Suboxone, no heroin use) (sober x4 years - now on Vivotrol monthly) Disposition: PCP: Dr. Platt CODE STATUS: Full code VTE prophylaxis: Lovenox SQ Disposition: anticipate d/c home once reliably tolerating food [facility] Admission and Anticipated Discharge Date Admission Date: August 31, 2022 Subjective 52-year-old female with chronic ongoing abdominal pain since May presented with worsening abdominal pain and found to have possible colitis on CT scan. She has been on full liquids overnight and is doing well. Denies any nausea but still reports ongoing abdominal pain. She reports Bentyl was not helpful for her and is open to try Carafate. Notably recent EGD revealed gastritis. She is okay to advance her diet at this time. Patient also is having an allergic response to the tape on the EKG leads. These are slightly painful per patient. Hydrocortisone was ordered. Tape allergy was placed on her chart. Discussed case with primary RN. Review of Systems Review of Systems: All systems were reviewed and negative except as in the above Physical Exam Physical Exam: CONSTITUTIONAL: WNWD, vitals as above, generally well- appearing, NAD EYES: normal conjunctivae, no scleral icterus, ENT: external ear and nose normal, MMM NECK: trachea midline RESPIRATORY: clear to auscultation bilaterally, no crackles, rales or wheezes, normal respiratory effort CARDIOVASCULAR: regular rate and rhythm, S1 and 2 heard without murmurs, gallops or rubs, no JVD, no peripheral edema, no carotid bruits CHEST: inspection of chest was normal GASTROINTESTINAL: soft, TTP in epigastric region and LUQ, ND, no guarding MUSCULOSKELETAL: strength 5/5 throughout, head is normocephalic and atraumatic, neck supple, normal palpation of chest wall without tenderness SKIN: warm and dry NEUROLOGIC: CN 2-12 grossly intact, no sensory deficit, normal cognition, normal speech, no tremor PSYCHIATRIC: alert cooperative and oriented to person, place and time. Euthymic mood, makes good eye contact, language grossly intact, recent and remote memory grossly intact. Results & Data Results & Data ([facility]) Vital Signs (Past 12 Hours) Vital Signs Temp Pulse Pulse Resp BP BP Pulse Ox 09/02/22 08:00 09/02/22 07:52 36.9 C 79 18 93/62 L 96 09/02/22 07:10 61 09/02/22 04:30 36.8 C 66 16 102/69 94 09/02/22 01:26 09/01/22 23:15 36.5 C 67 16 92/60 L 97 O2 Del Method 09/02/22 08:00 Room Air 09/02/22 07:52 Room Air 09/02/22 07:10 09/02/22 04:30 Room Air 09/02/22 01:26 Room Air 09/01/22 23:15 Room Air Laboratory Results Short CBC 09/02/22 Range/Units 06:18 WBC 8.40 (4.8-10.8) K/ul Hgb 11.5 L (12.0-16.0) g/dl Hct 34.4 (34.1-44.9) % Plt Count 253 (130-400) K/uL BMP 09/01/22 09/02/22 15:04 06:18 Sodium 144 Potassium 3.4 L D 3.4 L Chloride 113 H Carbon Dioxide 27 BUN 7 Creatinine 0.69 Glucose 83 Calcium 8.9 Medications Administered Current Inpatient Medications Acetaminophen (Acetaminophen 325 Mg Tab) 650 mg PO Q4H PRN PRN Reason: pain/fever Stop: 10/02/22 09:29 Benztropine Mesylate (Benztropine Mesylate 1 Mg Tab) 1 mg PO BID [facility] Stop: 09/30/22 20:59 Last Admin: 09/02/22 07:52 Dose: 1 mg Buspirone HCl (Buspirone 15 Mg Tab) 15 mg PO TID [facility] Stop: 09/30/22 20:59 Last Admin: 09/02/22 07:53 Dose: 15 mg Dicyclomine HCl (Dicyclomine Hcl 10 Mg Cap) 10 mg PO BID PRN PRN Reason: cramping Stop: 10/01/22 20:59 Last Admin: 09/01/22 19:24 Dose: 10 mg Duloxetine HCl (Duloxetine Hcl 30 Mg Cap) 90 mg PO QAM [facility] Stop: 10/01/22 08:59 Last Admin: 09/02/22 07:52 Dose: 90 mg Enoxaparin Sodium (Enoxaparin Inj 40 Mg/0.4 Ml Syr) 40 mg SQ Q24H [facility] Stop: 10/01/22 20:59 Last Admin: 09/01/22 20:07 Dose: 40 mg Famotidine (Famotidine 20 Mg Tab) 20 mg PO QAM [facility] Stop: 10/01/22 08:59 Gabapentin (Gabapentin 300 Mg Cap) 300 mg PO TID [facility] Stop: 09/30/22 20:59 Last Admin: 09/02/22 07:53 Dose: 300 mg Famotidine 20 mg/ Syringe 5 mls @ 2.5 mls/min IV Q12 [facility] Stop: 09/30/22 20:59 Last Admin: 09/02/22 07:55 Dose: 2.5 mls/min Ondansetron HCl (Ondansetron Inj 2 Mg/Ml 2 Ml Vial) 4 mg IV Q6H PRN PRN Reason: Nausea Stop: 09/30/22 18:52 Polyethylene Glycol (Polyethylene (Miralax) 17 Gm Pack) 17 gm PO DAILY PRN PRN Reason: Constipation Stop: 09/30/22 18:52 Prazosin HCl (Prazosin Hcl 1 Mg Cap) 8 mg PO HS [facility] Stop: 09/30/22 20:59 Last Admin: 09/01/22 20:08 Dose: 8 mg Sucralfate (Sucralfate 1 Gm/10 Ml Udc) 1 gm PO QID [facility] Stop: 09/04/22 12:59 Topiramate (Topiramate 100 Mg Tab) 100 mg PO BID [facility] Stop: 09/30/22 20:59 Last Admin: 09/02/22 07:52 Dose: 100 mg Ziprasidone (Ziprasidone Hcl 80 Mg Cap) 80 mg PO HS [facility] Stop: 09/30/22 20:59 Last Admin: 09/01/22 20:10 Dose: 80 mg
[2022-09-02] MEDS: HYDROCORTISONE 2.5% CR 30 GM TUBE EXT SCH ×2 (11:13→20:06)
[2022-09-02] MEDS: SUCRALFATE 1 GM/10 ML UDC PO SCH ×3 (12:46→19:59)
[2022-09-02] MEDS: ENOXAPARIN INJ 40 MG/0.4 ML SYR SQ SCH (19:56)
[2022-09-02] MEDS: PRAZOSIN HCL 1 MG CAP PO SCH (19:58)
[2022-09-02] MEDS: ziprasidone HCL 80 MG CAP PO SCH (19:58)
[2022-09-02] MEDS: DICYCLOMINE HCL 10 MG CAP PO PRN (20:48)
[2022-09-02] MEDS: ACETAMINOPHEN 325 MG TAB PO PRN (23:05)
[2022-09-03 08:01] LABS: Creatinine Clr Calc Pharmacy 101.2 ml/min; Est GFR (African American) 113.5 ml/min; Est GFR (Non-African American) 97.9 ml/min
[2022-09-03] MEDS: DICYCLOMINE HCL 10 MG CAP PO PRN (08:26)
[2022-09-03] MEDS: BENZTROPINE MESYLATE 1 MG TAB PO SCH (08:26)
[2022-09-03] MEDS: SUCRALFATE 1 GM/10 ML UDC PO SCH (08:26)
[2022-09-03] MEDS: TOPIRAMATE 100 MG TAB PO SCH (08:26)
[2022-09-03] MEDS: GABAPENTIN 300 MG CAP PO SCH ×2 (08:26→13:17)
[2022-09-03] MEDS: busPIRone 15 MG TAB PO SCH ×2 (08:27→13:17)
[2022-09-03] MEDS: DULoxetine HCL 30 MG CAP PO SCH (08:27)
[2022-09-03] MEDS: HYDROCORTISONE 2.5% CR 30 GM TUBE EXT SCH (08:27)
[2022-09-03] MEDS: FAMOTIDINE 20 MG in SYRINGE 3 ML IV SCH (08:29)
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
[2022-09-03] MEDS ORDERED: SUCRALFATE 1 GM/10 ML UDC PO SCH (11:30)
[2022-09-03 13:17] LABS: 7-Aminoclonazepam DNR ng/mL (<25); Alpha-Hydroxyalprazolam DNR ng/mL (<25); Alphahydroxymidazolam DNR ng/mL (<50); Alphahydroxytriazolam DNR ng/mL (<50); Amobarbital DNR ng/mL (<100); Amphetamines, Ur NEGATIVE ng/mL (<500); Amphetemines Ur GC/MS DNR ng/mL (<250); Barbiturates, Urine NEGATIVE ng/mL (<300); Benzodiazepines,Ur NEGATIVE ng/mL (<100); Butalbital DNR ng/mL (<100); Cocaine, Urine NEGATIVE ng/mL (<150); Cocaine,Ur GC/MS DNR ng/mL (<100); Codeine DNR ng/mL (<50); Confirmatory Facility DNR; EDDP DNR ng/mL (<100); Hydrocodone DNR ng/mL (<50); Hydromorphone DNR ng/mL (<50); Hydroxyethylflurazepam DNR ng/mL (<50); Lorazepam DNR ng/mL (<50); Methadone, Ur GC/MS NEGATIVE ng/mL (<100); Methadone, Urine DNR ng/mL (<100); Methamphetamine DNR ng/mL (<250); Morphine DNR ng/mL (<50); Norhydrocodone DNR ng/mL (<50); Noroxycodone DNR ng/mL (<50); Opiates, Urine NEGATIVE ng/mL (<100); Oxycodone,Ur Screen NEGATIVE ng/mL (<100); Pentobarbital DNR ng/mL (<100); Phencyclidine, Ur NEGATIVE ng/mL (<25); Phencyclidine,Ur GC/MS DNR ng/mL (<25); Secobarbital DNR ng/mL (<100); THC20, Qual, Urine POSITIVE ng/mL (<20); Temazepam DNR ng/mL (<50); Tetrahydrocannabinol 206 ng/mL (<5)
[2022-09-03] MEDS: ACETAMINOPHEN 325 MG TAB PO PRN (13:19)
== END 2022-09-03 14:30 | disposition home or self-care (01) | DRG 392 ==
LOC: ED 13:24 → SUATTDRO 16:13 → 2W 16:13 → INTOOBSV 16:13 → 2W 18:33

== ENCOUNTER 2022-09-24 09:24 | Observation (INO) ==
[2022-09-24] MEDS ORDERED: PROMETHAZINE HCL 25 MG in SODIUM CHLORIDE 0.9% 50 ML IV STA (09:55)
[2022-09-24] MEDS ORDERED: SODIUM CHLORIDE 0.9% 1000ML 1,000 ML IV ONE ×2 (09:55→13:28)
[2022-09-24 10:13] LABS: Basophils # (auto) 0.02 K/uL (0-0.2); Basophils % (auto) 0.3 %; Eosinophils # (auto) 0.06 K/uL (0-0.50); Eosinophils % (auto) 0.8 %; Hematocrit (blood only) 42.7 % (34.1-44.9); Hemoglobin 14.8 g/dl (12.0-16.0); Immature Granulocytes # (auto) 0.05 K/uL (0.00-0.02); Immature Granulocytes % (auto) 0.7 %; Lymphocytes # (auto) 1.92 K/uL (1.2-3.4); Lymphocytes % (auto) 25.2 %; Mean Corpuscular Hemoglobin 32.3 pg (25.0-34.0); Mean Corpuscular Hgb Conc 34.7 g/dL (32.0-36.0); Mean Corpuscular Volume 93.2 fL (80.0-100.0); Mean Platelet Volume 9.7 fL (9.4-12.3); Monocytes # (auto) 0.39 K/uL (0.24-0.82); Monocytes % (auto) 5.1 %; Neutrophils # (auto) 5.17 K/uL (1.4-6.5); Neutrophils % (auto) 67.9 %; Platelet Count 263 K/uL (130-400); RDW Coefficient of Variation 13.2 % (11.5-14.5); RDW Standard Deviation 45.3 fL (36.4-46.3); Red Blood Count 4.58 M/uL (3.93-5.22); White Blood Count 7.61 K/ul (4.8-10.8)
[2022-09-24 10:28] LABS: Anion Gap 9 (3-11); BUN Creatinine Ratio 13.5 (10-20); Blood Urea Nitrogen 10 mg/dl (6-23); Calcium 9.4 mg/dl (8.5-10.1); Carbon Dioxide 23 mmol/L (21-32); Chloride 112 mmol/L (98-107); Creatinine Clr Calc Pharmacy 97.2 ml/min; Est GFR (Non-African American) 93.1 ml/min; Glucose 121 mg/dl (70-99(Fasting)); Potassium 3.3 mmol/L (3.5-5.1); Sodium 144 mmol/L (136-145)
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
--- NOTE | 2022-09-24 10:36 | XRay Report ---
KUB CLINICAL HISTORY: Vomiting. COMPARISON STUDY: CT of the abdomen and pelvis September 23, 2022. FINDINGS: Cholecystectomy clips, intracanalicular electrodes and postoperative findings within the sp ine are incidentally noted. The bowel gas pattern is normal. There is no evidence for a bowel obstruc tion. There is no evidence for free air on this supine exam. IMPRESSION: No evidence for a bowel obstruction. ACT 112: Negative or not required by law. Electronically signed by: Ricardo Mcdaniels M.D. 09/24/2022 10:35 AM
[2022-09-24 10:41] LABS: Alanine Aminotransferase 14 U/L (7-52); Albumin Globulin Ratio 1.1 (0.9-2); Albumin Level 3.8 gm/dl (3.4-5.0); Alkaline Phosphatase 80 U/L (34-104); Aspartate Aminotransferase 21 U/L (13-39); Bilirubin,Total 0.6 mg/dl (0.2-1.0); Globulin 3.5 gm/dl (2.5-4.0); Lipase < 3 U/L (11-82); Total Protein 7.3 gm/dl (6.0-8.3)
--- NOTE | 2022-09-24 11:18 | Electrocardiogram Report ---
Test Reason : Blood Pressure : / mmHG Vent. Rate : 073 BPM Atrial Rate : 073 BPM P-R Int : 138 ms QRS Dur : 086 ms QT Int : 380 ms P-R-T Axes : 054 084 043 degrees QTc Int : 418 ms Poor data quality, interpretation may be adversely affected Normal sinus rhythm Normal ECG When compared with ECG of 23-SEP-2022 11:12, No significant change was found Confirmed by Suhail Dunn ([id number]) on 09/24/2022 11:18:20 AM Referred By: REFERRED SELF Confirmed By:Suhail Dunn
--- NOTE | 2022-09-24 11:19 | XRay Report ---
XR chest 1V portable CLINICAL HISTORY: vomiting COMPARISON STUDY: Chest radiograph September 23, 2022. FINDINGS: Small right pleural effusion is similar to prior exam. Subpleural opacity favors atelectasi s or scarring. Cardiac size is normal. Mediastinal contours are normal. There is no evidence for pulm onary edema. There is no consolidation to suggest pneumonia. Intracanalicular electrodes are noted. P rominence of the right hilum is likely due to pulmonary vessels. This is unchanged. IMPRESSION: No change in appearance of the chest. Small right pleural effusion which may be chronic. Associated subpleural opacity favors scarring or atelectasis. ACT 112: Negative or not required by law. Electronically signed by: Ricardo Mcdaniels M.D. 09/24/2022 11:17 AM
[2022-09-24 11:43] LABS: Appearance Urine Cloudy (Clear); Bacteria Urine Automated 1+ (Negative); Bilirubin Urine Negative (Negative); Blood Urine Trace (Negative); Color Urine Yellow; Epithelial Cell Urine Auto >30 /lpf (0-5); Glucose Urine UA Negative (Negative); Ketones Urine 2+ (Negative); Leukocyte Esterase Urine 1+ (Negative); Nitrite Urine Negative (Negative); Protein Urine Trace (Negative); RBC Urine Automated 0-4 /hpf (0-4); Specific Gravity Urine 1.017 (1.000-1.030); Urobilinogen Urine Negative (Negative); WBC Urine Automated >30 /hpf (0-5); pH Urine 6.5 (4.5-7.5)
[2022-09-24] MEDS ORDERED: cefTRIAXone SODIUM 2,000 MG/70 ML BAG IV STA (11:53)
[2022-09-24 12:07] LABS: Amphetamines+Metham, Urine Neg (Neg); Barbiturates, Urine Neg (Neg); Benzodiazepine, Urine Neg (Neg); Cocaine, Urine Neg (Neg); MDMA (Ecstacy), Urine Neg (Neg); Methadone, Urine Neg (Neg); Opiate, Urine Pos (Neg); Phencyclidine, Urine Neg (Neg)
[2022-09-24] MEDS ORDERED: PROMETHAZINE 12.5 MG/50.5 ML BAG IV STA (13:28)
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
[2022-09-24] MEDS ORDERED: POTASSIUM CHLORIDE 40 MEQ in SODIUM CHLORIDE 0.9% 1000ML 1,000 ML IV SCH (15:45)
[2022-09-24] MEDS ORDERED: POLYETHYLENE (MIRALAX) 17 GM PACK PO PRN (17:22)
[2022-09-24] MEDS ORDERED: ALBUTEROL HFA 8 GM INHALER INH PRN (17:22)
[2022-09-24] MEDS ORDERED: ENOXAPARIN INJ 40 MG/0.4 ML SYR SQ SCH (17:45)
[2022-09-24] MEDS: SUCRALFATE 1 GM TAB PO SCH ×2 (18:16→20:07)
[2022-09-24] MEDS: DICYCLOMINE HCL 20 MG TAB PO SCH ×2 (18:16→20:06)
[2022-09-24] MEDS: ONDANSETRON INJ 2 MG/ML 2 ML VIAL IV PRN (20:01)
[2022-09-24] MEDS: PRAZOSIN HCL 1 MG CAP PO SCH ×2 (20:03→20:04)
[2022-09-24] MEDS: BENZTROPINE MESYLATE 1 MG TAB PO SCH (20:04)
[2022-09-24] MEDS: rOPINIRole HCL 1 MG TABLET PO SCH (20:04)
[2022-09-24] MEDS: busPIRone 15 MG TAB PO SCH (20:04)
[2022-09-24] MEDS: GABAPENTIN 300 MG CAP PO SCH (20:05)
[2022-09-24] MEDS: TOPIRAMATE 100 MG TAB PO SCH (20:05)
[2022-09-24] MEDS: ziprasidone HCL 80 MG CAP PO SCH (20:05)
[2022-09-24] MEDS: PHENAZOPYRIDINE HCL 200 MG TAB PO SCH (20:06)
[2022-09-24] MEDS: HYDROCORTISONE 2.5% CR 30 GM TUBE EXT SCH (20:06)
[2022-09-24] MEDS: MoRPHine SULFATE 4 MG/ML 1 ML CARP\\VIAL IV PRN (20:13)
[2022-09-24] MEDS: FAMOTIDINE 20 MG in SYRINGE 3 ML IV SCH (20:35)
[2022-09-25 05:56] LABS: Hematocrit (blood only) 37.9 % (34.1-44.9); Mean Corpuscular Hemoglobin 32.3 pg (25.0-34.0); Mean Corpuscular Hgb Conc 34.3 g/dL (32.0-36.0); Mean Platelet Volume 9.6 fL (9.4-12.3); Platelet Count 220 K/uL (130-400); RDW Coefficient of Variation 13.6 % (11.5-14.5); RDW Standard Deviation 46.4 fL (36.4-46.3); Red Blood Count 4.03 M/uL (3.93-5.22); White Blood Count 6.98 K/ul (4.8-10.8)
[2022-09-25 06:26] LABS: BUN Creatinine Ratio 12.9 (10-20); Calcium 8.6 mg/dl (8.5-10.1); Creatinine Clr Calc Pharmacy 103.1 ml/min; Est GFR (African American) 115.5 ml/min; Est GFR (Non-African American) 99.6 ml/min; Magnesium 1.6 mg/dl (1.7-2.4); Potassium 3.1 mmol/L (3.5-5.1)
[2022-09-25] MEDS ORDERED: MAGNESIUM SULFATE / D5W 1 GM/100 ML BAG IV ONE (08:28)
[2022-09-25] MEDS ORDERED: FAMOTIDINE 20 MG TAB PO SCH (09:00)
[2022-09-25] MEDS: SUCRALFATE 1 GM TAB PO SCH ×4 (09:11→20:55)
[2022-09-25] MEDS: busPIRone 15 MG TAB PO SCH ×3 (09:12→20:50)
[2022-09-25] MEDS: DULoxetine HCL 30 MG CAP PO SCH (09:12)
[2022-09-25] MEDS: BENZTROPINE MESYLATE 1 MG TAB PO SCH ×2 (09:12→20:49)
[2022-09-25] MEDS: DICYCLOMINE HCL 20 MG TAB PO SCH ×4 (09:13→20:50)
[2022-09-25] MEDS: GABAPENTIN 300 MG CAP PO SCH ×3 (09:13→20:51)
[2022-09-25] MEDS: PHENAZOPYRIDINE HCL 200 MG TAB PO SCH ×3 (09:14→20:53)
[2022-09-25] MEDS: ADVANCED PROBIOTIC 1250 MG CAPSULE PO SCH (09:14)
[2022-09-25] MEDS: HYDROCORTISONE 2.5% CR 30 GM TUBE EXT SCH ×2 (09:14→20:52)
[2022-09-25] MEDS: POTASSIUM CHLORIDE CRTAB 20 MEQ TABCR PO SCH ×2 (09:15→20:52)
[2022-09-25] MEDS: TOPIRAMATE 100 MG TAB PO SCH ×2 (09:15→20:56)
[2022-09-25] MEDS: POTASSIUM CHLORIDE / WTR 10 MEQ/100 ML PLCT IV SCH ×2 (09:24→11:30)
[2022-09-25] MEDS: FAMOTIDINE 20 MG in SYRINGE 3 ML IV SCH ×2 (09:28→21:04)
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
[2022-09-25] MEDS: cefTRIAXone SODIUM 2,000 MG in DEXTROSE 5% 50 ML IV SCH (12:17)
--- NOTE | 2022-09-25 13:39 | Hospitalist Progress Note ---
Date of Service September 25, 2022 Assessment & Plan (1) Lower abdominal pain: (2) Nausea & vomiting: (3) UTI (urinary tract infection): (4) Medical marijuana use: (5) Bipolar disorder: (6) Anxiety: Plan per admitting service notes with addendum: This is a 52yo F with a PMH of bipolar disorder, medical marijuana use who presents with nausea, vomiting and ongoing abdominal pain since May 2022. Nausea and vomiting N/V likely multifactorial with infection, possible component of Cannibis hyperemesis and possible withdrawal from Geodon, duloxetine since unable to keep down KUB without obstruction. Recent abdominal pain workup as below Antiemetics PRN, adv diet as tolerated, gentle fluids 09/25 CT abdomen/pelvis: unremarkable GI consulted, felt to be functional abdominal pain symptoms improving today clear liquids today monitor Urinary tract infection Lower urinary symptoms, abnormal UA Could not keep Cipro down yesterday, admitting for IV abx therapy with rocephin- continue empirically Yesterday's CT abd/pelvis with presence of nephrolithiasis but no obstruction. Kidney function at baseline Follow urine culture 09/25 afebrile urine culture pending continue Ceftriaxone IV Mid abdominal pain Ongoing since May Recent abdominal pain work up including upper and lower endoscopy in Aug 2022 revealing gastritis and internal hemorrhoids with diverticulosis, respectively CT abd/pelvis from yesterday with no bowel wall thickening or obstruction. Bilateral nephrolithiasis. No ureteral stones. No hydronephrosis. Bladder wall thickening with adjacent fat stranding. This favors a cystitis. Recommend correlation with urinalysis. Cholecystectomy KUB today without evidence of bowel obstruction Afebrile, VSS, no leukocytosis, no LFT elevation, lipase WNL Due for outpatient GI evaluation in October Continue Bentyl,clear liquids and advance diet as tolerated. Consider GI consult if no improvement 09/25 management per above Hypokalemia replaced Bipolar disorder Anxiety Continue duloxetine, Geodon HS, Buspar TID, topiramate BID RLS Ropinirole HS DVT Ppx: SQ lovenox Code status: FULL PCP: Giulia Dispo: anticipate d/c home in 1-2 days Admission and Anticipated Discharge Date Admission Date: September 24, 2022 Subjective Follow-up for abdominal pain, UTI, etc. seen resting in bed, comfortable States abdominal pain is improving today Able to tolerate clear liquids Has urinary frequency, no dysuria, fevers or chills No nausea vomiting No other symptoms Review of Systems Review of Systems: all noted and negative except for above Physical Exam Physical Exam: General- oriented x 3, not in distress, speaks in sentences with no effort or accessory muscle use Eyes- anicteric Neck- no JVD Lungs- clear BS BL no rales/wheezing Heart- normal rate, regular rhythm; no murmurs Abdomen- normal bowel sounds, nondistended, soft, nontender Extremities- no pretibial edema, no calf tenderness Neuro- alert, oriented x 3; no gross focal neurologic deficits Skin- warm & dry Results & Data Results & Data ([facility]) Vital Signs (Past 12 Hours) Vital Signs Temp Pulse Resp BP Pulse Ox O2 Del Method 09/25/22 07:46 37.3 C 70 17 122/77 95 Room Air all noted and reviewed including below (1) UTI (urinary tract infection) Hematuria presence: without hematuria Urinary tract infection type: site unspecified Qualified Code(s): N39.0 - Urinary tract infection, site not specified
[2022-09-25] MEDS: ACETAMINOPHEN 325 MG TAB PO PRN (17:06)
[2022-09-25] MEDS: MoRPHine SULFATE 4 MG/ML 1 ML CARP\\VIAL IV PRN (20:39)
[2022-09-25] MEDS: ONDANSETRON INJ 2 MG/ML 2 ML VIAL IV PRN (20:44)
[2022-09-25] MEDS: PRAZOSIN HCL 1 MG CAP PO SCH ×2 (20:53→20:54)
[2022-09-25] MEDS: rOPINIRole HCL 1 MG TABLET PO SCH (20:54)
[2022-09-25] MEDS: ziprasidone HCL 80 MG CAP PO SCH (20:56)
[2022-09-26 06:24] LABS: Hematocrit (blood only) 37.9 % (34.1-44.9); Hemoglobin 12.8 g/dl (12.0-16.0); Mean Corpuscular Hemoglobin 32.4 pg (25.0-34.0); Mean Corpuscular Hgb Conc 33.8 g/dL (32.0-36.0); Mean Corpuscular Volume 95.9 fL (80.0-100.0); Mean Platelet Volume 9.8 fL (9.4-12.3); Platelet Count 199 K/uL (130-400); RDW Coefficient of Variation 13.7 % (11.5-14.5); RDW Standard Deviation 48.5 fL (36.4-46.3); Red Blood Count 3.95 M/uL (3.93-5.22); White Blood Count 5.96 K/ul (4.8-10.8)
[2022-09-26 06:54] LABS: BUN Creatinine Ratio 8.8 (10-20); Calcium 8.5 mg/dl (8.5-10.1); Est GFR (African American) 98.2 ml/min; Est GFR (Non-African American) 84.8 ml/min; Potassium 3.7 mmol/L (3.5-5.1)
[2022-09-26] MEDS: SUCRALFATE 1 GM TAB PO SCH ×4 (08:38→20:15)
[2022-09-26] MEDS: GABAPENTIN 300 MG CAP PO SCH ×3 (08:38→20:10)
[2022-09-26] MEDS: PHENAZOPYRIDINE HCL 200 MG TAB PO SCH ×3 (08:38→20:11)
[2022-09-26] MEDS: DICYCLOMINE HCL 20 MG TAB PO SCH ×4 (08:38→20:10)
[2022-09-26] MEDS: HYDROCORTISONE 2.5% CR 30 GM TUBE EXT SCH ×2 (08:38→20:11)
[2022-09-26] MEDS: BENZTROPINE MESYLATE 1 MG TAB PO SCH ×2 (08:39→20:09)
[2022-09-26] MEDS: busPIRone 15 MG TAB PO SCH ×3 (08:39→20:09)
[2022-09-26] MEDS: DULoxetine HCL 30 MG CAP PO SCH (08:39)
[2022-09-26] MEDS: TOPIRAMATE 100 MG TAB PO SCH ×2 (08:39→20:15)
[2022-09-26] MEDS: POTASSIUM CHLORIDE CRTAB 20 MEQ TABCR PO SCH ×2 (08:39→20:12)
--- NOTE | 2022-09-26 08:55 | Gastroenterology Progress Note ---
Date of Service September 26, 2022 Assessment & Plan (1) Lower abdominal pain: Plan: She seems to be better. She does not look to be in pain. She has had no vomiting so that is an improvement. Will let her try regular diet and see how she does. Admission and Anticipated Discharge Date Admission Date: September 24, 2022 Subjective Feeling better today. Thinks the medication (Bentyl) is helping her although she still rates the pain 7 out of 10. Having loose stools but feels that is related to clear liquids. Physical Exam Constitutional: WD/WN, vitals as above She looks well Results & Data ([facility]) Vital Signs (Past 12 Hours) Vital Signs Temp Pulse Pulse Resp BP BP Pulse Ox 09/26/22 07:51 37.1 C 72 20 111/72 95 09/25/22 22:15 56 L 09/25/22 22:24 36.6 C 63 18 130/86 98 09/25/22 22:42 O2 Del Method 09/26/22 07:51 Room Air 09/25/22 22:15 09/25/22 22:24 Room Air 09/25/22 22:42 Room Air
[2022-09-26] MEDS: FAMOTIDINE 20 MG in SYRINGE 3 ML IV SCH ×2 (09:09→20:00)
[2022-09-26] MEDS: ADVANCED PROBIOTIC 1250 MG CAPSULE PO SCH (10:42)
[2022-09-26] MEDS: cefTRIAXone SODIUM 2,000 MG in DEXTROSE 5% 50 ML IV SCH (11:39)
[2022-09-26] MEDS: ACETAMINOPHEN 325 MG TAB PO PRN (14:32)
[2022-09-26] MEDS: MoRPHine SULFATE 4 MG/ML 1 ML CARP\\VIAL IV PRN ×2 (16:19→20:16)
--- NOTE | 2022-09-26 16:49 | Hospitalist Progress Note ---
Date of Service September 26, 2022 Assessment & Plan (1) Lower abdominal pain: (2) Nausea & vomiting: (3) UTI (urinary tract infection): (4) Medical marijuana use: (5) Bipolar disorder: (6) Anxiety: Plan per admitting service notes with addendum: This is a 52yo F with a PMH of bipolar disorder, medical marijuana use who presents with nausea, vomiting and ongoing abdominal pain since May 2022. Nausea and vomiting N/V likely multifactorial with infection, possible component of Cannibis hyperemesis and possible withdrawal from Geodon, duloxetine since unable to keep down KUB without obstruction. Recent abdominal pain workup as below Antiemetics PRN, adv diet as tolerated, gentle fluids 09/25 CT abdomen/pelvis: unremarkable GI consulted, felt to be functional abdominal pain symptoms improving today clear liquids today monitor 09/26 improving diet advanced monitor closely Urinary tract infection Lower urinary symptoms, abnormal UA Could not keep Cipro down yesterday, admitting for IV abx therapy with rocephin- continue empirically Yesterday's CT abd/pelvis with presence of nephrolithiasis but no obstruction. Kidney function at baseline Follow urine culture 09/26 afebrile urine culture pending continue Ceftriaxone IV Mid abdominal pain Ongoing since May Recent abdominal pain work up including upper and lower endoscopy in Aug 2022 revealing gastritis and internal hemorrhoids with diverticulosis, respectively CT abd/pelvis from yesterday with no bowel wall thickening or obstruction. Bilateral nephrolithiasis. No ureteral stones. No hydronephrosis. Bladder wall t hickening with adjacent fat stranding. This favors a cystitis. Recommend correlation with urinalysis. Cholecystectomy KUB today without evidence of bowel obstruction Afebrile, VSS, no leukocytosis, no LFT elevation, lipase WNL Due for outpatient GI evaluation in October Continue Bentyl,clear liquids and advance diet as tolerated. Consider GI consult if no improvement 09/26 management per above Hypokalemia replaced Bipolar disorder Anxiety Continue duloxetine, Geodon HS, Buspar TID, topiramate BID RLS Ropinirole HS DVT Ppx: SQ lovenox Code status: FULL PCP: Giulia Dispo: anticipate d/c home in 1-2 days Admission and Anticipated Discharge Date Admission Date: September 24, 2022 Subjective ff up for abdominal pain, etc seen resting in bed, comfortable states she feels improved today tolerating soft diet so far no urinary symptoms Review of Systems Review of Systems: all noted and negative except for above Physical Exam Physical Exam: General- oriented x 3, not in distress, speaks in sentences with no effort or accessory muscle use Eyes- anicteric Neck- no JVD Lungs- clear BS bilaterally, no rales/wheezes Heart- normal rate, regular rhythm; no murmurs Abdomen- normal bowel sounds, nondistended, soft, no tenderness Extremities- no pretibial edema, no calf tenderness Neuro- alert, oriented x 3; no gross focal neurologic deficits Skin- warm & dry Results & Data Results & Data ([facility]) Vital Signs (Past 12 Hours) Vital Signs Temp Pulse Resp BP BP Pulse Ox O2 Del Method 09/26/22 15:33 36.9 C 63 19 136/89 98 Room Air 09/26/22 10:22 Room Air 09/26/22 07:51 37.1 C 72 20 111/72 95 Room Air all noted and reviewed including below (1) UTI (urinary tract infection) Hematuria presence: without hematuria Urinary tract infection type: site unspecified Qualified Code(s): N39.0 - Urinary tract infection, site not specified
[2022-09-26] MEDS: ONDANSETRON INJ 2 MG/ML 2 ML VIAL IV PRN (20:00)
[2022-09-26] MEDS: PRAZOSIN HCL 1 MG CAP PO SCH ×2 (20:13→20:14)
[2022-09-26] MEDS: rOPINIRole HCL 1 MG TABLET PO SCH (20:14)
[2022-09-26] MEDS: ziprasidone HCL 80 MG CAP PO SCH (20:16)
[2022-09-27] MEDS: SUCRALFATE 1 GM TAB PO SCH ×2 (07:42→11:41)
[2022-09-27] MEDS: DULoxetine HCL 30 MG CAP PO SCH (08:05)
[2022-09-27] MEDS: ACETAMINOPHEN 325 MG TAB PO PRN ×2 (08:05→14:18)
[2022-09-27] MEDS: ADVANCED PROBIOTIC 1250 MG CAPSULE PO SCH (08:05)
[2022-09-27] MEDS: TOPIRAMATE 100 MG TAB PO SCH (08:05)
[2022-09-27] MEDS: POTASSIUM CHLORIDE CRTAB 20 MEQ TABCR PO SCH (08:06)
[2022-09-27] MEDS: HYDROCORTISONE 2.5% CR 30 GM TUBE EXT SCH (08:06)
[2022-09-27] MEDS: PHENAZOPYRIDINE HCL 200 MG TAB PO SCH ×2 (08:06→13:51)
[2022-09-27] MEDS: BENZTROPINE MESYLATE 1 MG TAB PO SCH (08:06)
[2022-09-27] MEDS: busPIRone 15 MG TAB PO SCH ×2 (08:06→13:51)
[2022-09-27] MEDS: DICYCLOMINE HCL 20 MG TAB PO SCH ×2 (08:06→11:41)
[2022-09-27] MEDS: FAMOTIDINE 20 MG in SYRINGE 3 ML IV SCH (08:06)
[2022-09-27] MEDS: GABAPENTIN 300 MG CAP PO SCH ×2 (08:06→13:51)
[2022-09-27 09:12] LABS: Codeine Urine NEGATIVE ng/mL (<50); Hydrocodone Urine NEGATIVE ng/mL (<50); Hydromor Urine NEGATIVE ng/mL (<50); Marijuana Quant, GCMS Urine 359 ng/mL (<5); Morphine Urine 1740 ng/mL (<50); Norhydrocodone Conf Ur NEGATIVE ng/mL (<50); Noroxycodone Urine NEGATIVE ng/mL (<50); Oxycodone Urine NEGATIVE ng/mL (<50); Oxymorph Urine NEGATIVE ng/mL (<50)
--- NOTE | 2022-09-27 10:50 | Gastroenterology Progress Note ---
Date of Service September 27, 2022 Assessment & Plan (1) Cyclical vomiting, intractable: (2) Lower abdominal pain: (3) UTI (urinary tract infection): Plan OK for DC on Current GI meds/dosing: Bentyl, Famotidine, Sucralfate. No narcotics as OP. Has OP GI f/u w Claudia Torres in October. Admission and Anticipated Discharge Date Admission Date: September 24, 2022 Supervising Physician Co-Signing Physician Notes I have seen and examined the patient and discussed the management with MIKA Keyes. Patient is sleepy but arousable Benign abd exam Labs/imaging/weekend GI consult and progress notes reviewed Function abd pain- improving on bentyl, pepcid, and carafate. Continued outpt fup in 11/01 as already scheduled. Subjective 52 yr old female w hx of cyclical vomiting/IBSarrival on 09/25 w N//D which have resolved. Still some lower abd discomfort. Says feels better and would be interested in discharge today. EGD and Colonoscopy Aug 2022 endoscopically normal. Mild chronic duodenitis w/o Celiac and mild chronic gastritis w/o H Pylori was present on Path. Review of Systems Review of Systems: ROS: Gen: Denies weakness, fevers, weight loss Eyes: No eye redness, or pain, no recent vision changes Resp: No SOB, no cough Cardio: No palpitations/irregular beats, no chest pain GI: As per HPI, otherwise (-) : Denies pain on urination Skin: No jaundice, itching or new rashes Physical Exam Constitutional: WD/WN, vitals as above Eyes: PERRL, conjunctivae normal, anicteric sclerae ENMT: external ear and nose normal, oropharynx normal Neck: trachea midline, no thyromegaly Respiratory: normal respiratory effort, lungs clear to auscultation Cardiovascular: RRR, no murmur, no edema Gastrointestinal (Abdomen): Mild diffuse tenderness, no focal tenderness, Abd is soft and BS normal. Skin: no rashes, warm and dry Neurologic: PERRL, EOMI, accommodation nl, no face palsy, no dysarthria Psychiatric: A+Ox3, euthymic affect Results & Data ([facility]) Vital Signs (Past 12 Hours) Vital Signs Temp Pulse Resp BP Pulse Ox O2 Del Method 09/27/22 10:29 Room Air 09/27/22 07:49 36.8 C 54 L 18 110/70 94 Room Air Laboratory Results Yesterday's CBC, CMP w/o significant abnormalities. (1) UTI (urinary tract infection) Hematuria presence: without hematuria Urinary tract infection type: site unspecified Qualified Code(s): N39.0 - Urinary tract infection, site not specified
--- NOTE | 2022-09-27 13:58 | Hospitalist Progress Note ---
Date of Service September 27, 2022 Assessment & Plan (1) Lower abdominal pain: (2) Nausea & vomiting: (3) UTI (urinary tract infection): (4) Medical marijuana use: (5) Bipolar disorder: (6) Anxiety: Plan per admitting service notes with addendum: This is a 52yo F with a PMH of bipolar disorder, medical marijuana use who presents with nausea, vomiting and ongoing abdominal pain since May 2022. Nausea and vomiting N/V likely multifactorial with infection, possible component of Cannibis hyperemesis and possible withdrawal from Geodon, duloxetine since unable to keep down KUB without obstruction. Recent abdominal pain workup as below Antiemetics PRN, adv diet as tolerated, gentle fluids 09/25 CT abdomen/pelvis: unremarkable GI consulted, felt to be functional abdominal pain symptoms improving today clear liquids today monitor 09/26 improving diet advanced monitor closely 09/27 much better pain minimal, tolerating diet well no other symptoms Urinary tract infection Lower urinary symptoms, abnormal UA Could not keep Cipro down yesterday, admitting for IV abx therapy with rocephin- continue empirically Yesterday's CT abd/pelvis with presence of nephrolithiasis but no obstruction. Kidney function at baseline Follow urine culture 09/27 afebrile urine culture Negative received 2 days of IV Ceftriaxone Mid abdominal pain Ongoing since May Recent abdominal pain work up including upper and lower endoscopy in Aug 2022 revealing gastritis and internal hemorrhoids with diverticulosis, respectively CT abd/pelvis from yesterday with no bowel wall thickening or obstruction. Bilateral nephrolithiasis. No ureteral stones. No hydronephrosis. Bladder wall thickening with adjacent fat stranding. This favors a cystitis. Recommend correlation with urinalysis. Cholecystectomy KUB today without evidence of bowel obstruction Afebrile, VSS, no leukocytosis, no LFT elevation, lipase WNL Due for outpatient GI evaluation in October Continue Bentyl,clear liquids and advance diet as tolerated. Consider GI consult if no improvement 09/27 management per above Hypokalemia Potassium 40 meq daily repeat BMP on ff up with PCP Bipolar disorder Anxiety Continue duloxetine, Geodon HS, Buspar TID, topiramate BID RLS Ropinirole HS DVT Ppx: SQ lovenox Code status: FULL PCP: Giulia Dispo: anticipate d/c home in 1-2 days Admission and Anticipated Discharge Date Admission Date: September 24, 2022 Subjective ff up for abdominal pain, etc seen resting in bed, comfortable states she feels much better overall tolerating diet well minimal abdominal discomfort, no nausea/vomiting no other symptoms Review of Systems Review of Systems: all noted and negative except for above Physical Exam Physical Exam: General- oriented x 3, not in distress, speaks in sentences with no effort or accessory muscle use Eyes- anicteric Neck- no JVD Lungs- clear BS BL Heart- normal rate, regular rhythm; no murmurs Abdomen- normal bowel sounds, nondistended, soft, no tenderness Extremities- no pretibial edema, no calf tenderness Neuro- alert, oriented x 3; no gross focal neurologic deficits Skin- warm & dry Results & Data Results & Data ([facility]) Vital Signs (Past 12 Hours) Vital Signs Temp Pulse Resp BP BP Pulse Ox O2 Del Method 09/27/22 13:29 36.8 C 54 L 18 110/70 129/85 94 09/27/22 10:29 Room Air 09/27/22 07:49 36.8 C 54 L 18 110/70 94 Room Air all noted and reviewed including below (1) UTI (urinary tract infection) Hematuria presence: without hematuria Urinary tract infection type: site unspecified Qualified Code(s): N39.0 - Urinary tract infection, site not specified
--- NOTE | 2022-09-27 14:06 | Discharge Summary ---
Discharge Summary Date of Service September 27, 2022 Notes For Next Care Provider Please repeat potassium level on follow-up with primary care physician 1 week postdischarge. Medication Changes From Visit New medication: Potassium 40 mEq p.o. daily x7 days Admission HPI Per Admitting Provider This is a 52yo F with a PMH of bipolar disorder, medical marijuana use who presents with nausea, vomiting and ongoing abdominal pain since May 2022. Patient has recently undergone an upper and lower endoscopy in Aug 2022 revealing gastritis and internal hemorrhoids with diverticulosis, respectively. Was started on Bentyl but unsure if that is really helping. Continues to have mid abdominal discomfort that she describes as sharp. Patient was evaluated in ED yesterday for the same symptoms and found to have UTI. CT abdomen pelvis was done showing potential cystitis, no acute surgical process and no diverticulitis. Denies any dysuria or hematuria but increased urinary frequency and urgency over the past few days. States she was smoking more medical or marijuana recently until stopping 3 days ago. Had Bentyl prescription refilled and was discharged home on oral course of Keflex for UTI with PCP follow-up. Has continued to have nausea and vomiting since discharge home and cannot keep down food or antibiotic. Return to ED today for further evaluation. Patient is afebrile and hemodynamically stable. Has a dull headache. Denies any lightheadedness, dizziness, chest pain, palpitations, shortness of breath, diarrhea or constipation. Admission Exam Per Admitting Provider General Appearance:WD/WN, vitals as above, NAD, sitting up in bed, conversing easily Head: normocephalic, atraumatic Eyes:normal inspection, PERRL, conjunctivae normal, anicteric sclerae ENT: external ear and nose normal, dry mucous membranes of oropharynx Neck: normal visual inspection, trachea midline, no thyromegaly Respiratory:normal respiratory effort, lungs clear to auscultation, no wheeze, rales, rhonchi. No accessory muscle use Cardiovascular: regular rate, rhythm, no murmur, normal peripheral pulses, no BLE edema. Vessels: no JVD Chest: normal inspection of chest Abdomen/GI: normal bowel sounds, soft, midabdominal TTP, no guarding, no hepatosplenomegaly Extremities/Musculoskeletal: no cyanosis or clubbing, extremities motor strength 5/5 Neurologic: PERRL, EOMI, accommodation nl, no face palsy, no dysarthria, CN's II-XI intact bilaterally and moves all extremities Psychiatric:A+Ox3, euthymic affect Skin: no rashes, normal color, warm/dry Principal Dx & Hospital Course #1 = Principal Diagnosis (1) Lower abdominal pain: (2) Nausea & vomiting: (3) UTI (urinary tract infection): (4) Medical marijuana use: (5) Bipolar disorder: (6) Anxiety: Plan per admitting service notes with addendum: This is a 52yo F with a PMH of bipolar disorder, medical marijuana use who presents with nausea, vomiting and ongoing abdominal pain since May 2022. Nausea and vomiting N/V likely multifactorial with infection, possible component of Cannibis hyperemesis and possible withdrawal from Geodon, duloxetine since unable to keep down KUB without obstruction. CT abdomen/pelvis: unremarkable GI consulted, felt to be functional abdominal pain symptoms clinically improved, tolerating diet well Continue usual medication regimen including Bentyl, famotidine, sucralfate Follow-up with GI clinic as scheduled Urinary tract infection Lower urinary symptoms, abnormal UA urine culture Negative received 2 days of IV Ceftriaxone Mid abdominal pain Ongoing since May Recent abdominal pain work up including upper and lower endoscopy in Aug 2022 revealing gastritis and internal hemorrhoids with diverticulosis, respectively CT abd/pelvis 1 day prior to admission with no bowel wall thickening or obstruction. Bilateral nephrolithiasis. No ureteral stones. No hydronephrosis. Bladder wall thickening with adjacent fat stranding. This favors a cystitis. Recommend correlation with urinalysis. Cholecystectomy KUB on admission: No evidence of bowel obstruction Management per #1 Hypokalemia Potassium 40 meq daily repeat BMP on ff up with PCP Bipolar disorder Anxiety Continue duloxetine, Geodon HS, Buspar TID, topiramate BID RLS Ropinirole HS DVT Ppx: SQ lovenox Code status: FULL PCP: Giulia Dispo: anticipate d/c home in 1-2 days Discharge Exam General- oriented x 3, not in distress, speaks in sentences with no effort or accessory muscle use Eyes- anicteric Neck- no JVD Lungs- clear BS BL Heart- normal rate, regular rhythm; no murmurs Abdomen- normal bowel sounds, nondistended, soft, no tenderness Extremities- no pretibial edema, no calf tenderness Neuro- alert, oriented x 3; no gross focal neurologic deficits Skin- warm & dry Updated Medication List Medication Instructions Recorded Confirmed Type benztropine 1 mg tablet 1 mg PO BID 08/17/22 09/24/22 History buspirone 15 mg tablet 15 mg PO TID 08/17/22 09/24/22 History duloxetine 30 mg capsule,delayed 90 mg PO QAM 08/17/22 09/24/22 History release gabapentin 300 mg capsule 300 mg PO TID 08/17/22 09/24/22 History topiramate 100 mg tablet 100 mg PO BID 08/17/22 09/24/22 History ziprasidone HCl 80 mg capsule 80 mg PO HS 08/17/22 09/24/22 History famotidine 20 mg tablet 20 mg PO QAM #14 tabs 08/19/22 09/24/22 Rx hydrocortisone 2.5 % topical cream 1 applic EXT BID #30 grams 09/03/22 09/24/22 Rx sucralfate 1 gram tablet (Carafate) 1 g PO ACHS #60 tabs 09/03/22 09/24/22 Rx cephalexin 500 mg capsule 500 mg PO TID 10 days #30 caps 09/23/22 09/24/22 Rx dicyclomine 20 mg tablet 20 mg PO QID #20 tabs 09/23/22 09/24/22 Rx phenazopyridine 200 mg tablet 200 mg PO TID 3 days #9 tabs 09/23/22 09/24/22 Rx (Pyridium) Lactobacillus acidophilus 20 10 mg PO DAILY 09/24/22 09/24/22 History billion cell capsule (Florajen Acidophilus) albuterol sulfate 90 mcg/actuation 2 puff inhalation Q4H PRN 09/24/22 09/24/22 History aerosol inhaler Shortness Of Breath Or Wheezing ondansetron HCl 4 mg tablet 8 mg PO Q8H PRN nausea and vomiting 09/24/22 09/24/22 History prazosin 2 mg capsule 2 mg PO HS 09/24/22 09/24/22 History prazosin 5 mg capsule 5 mg PO HS 09/24/22 09/24/22 History ropinirole 1 mg tablet 1 mg PO HS 09/24/22 09/24/22 History potassium chloride 20 mEq 40 meq PO DAILY 7 days #14 tabs 09/27/22 Rx tablet,extended release(part/cryst) Hospital Stay Data Consultations 09/24/22 13:39 ED Decision to Admit Stat 09/25/22 08:00 Consult Gastroenterology Routine Procedures Performed KUB X-Ray 09/24/22 09:55 KUB CLINICAL HISTORY: Vomiting. COMPARISON STUDY: CT of the abdomen and pelvis September 23, 2022. FINDINGS: Cholecystectomy clips, intracanalicular electrodes and postoperative findings within the spine are incidentally noted. The bowel gas pattern is normal. There is no evidence for a bowel obstruction. There is no evidence for free air on this supine exam. IMPRESSION: No evidence for a bowel obstruction. ACT 112: Negative or not required by law. Electronically signed by: Ricardo Mcdaniels M.D. 09/24/2022 10:35 AM Chest X-Ray 09/24/22 09:56 XR chest 1V portable CLINICAL HISTORY: vomiting COMPARISON STUDY: Chest radiograph September 23, 2022. FINDINGS: Small right pleural effusion is similar to prior exam. Subpleural opacity favors atelectasis or scarring. Cardiac size is normal. Mediastinal contours are normal. There is no evidence for pulmonary edema. There is no consolidation to suggest pneumonia. Intracanalicular electrodes are noted. Prominence of the right hilum is likely due to pulmonary vessels. This is unchanged. IMPRESSION: No change in appearance of the chest. Small right pleural effusion which may be chronic. Associated subpleural opacity favors scarring or atelectasis. ACT 112: Negative or not required by law. Electronically signed by: Ricardo Mcdaniels M.D. 09/24/2022 11:17 AM Pending Results Patient Have Any Pending Studies at Discharge: No Discharge Instructions Given to Patient (Per Discharging Provider) Please resume your usual medication regimen including famotidine, sucralfate, Bentyl. You have been prescribed potassium supplement as well. PLEASE CALL YOUR PRIMARY CARE PHYSICIAN OR RETURN TO THE ER IF WITH WORSENING OF SYMPTOMS, INCLUDING Abdominal pain, nausea/vomiting, etc. FOLLOW UP WITH PRIMARY CARE PHYSICIAN OUTLINED ABOVE. Total Time Total Time Spent Total Time Spent (In Minutes): > 30 minutes
== END 2022-09-27 15:15 | disposition home or self-care (01) ==
LOC: ED 09:24 → 2N 14:11 → SUATTDRO 14:11 → INTOOBSV 14:11 → 2N 16:32